=== PATIENT | female | born 1995 | race Caucasian/White ===

== ENCOUNTER 2025-04-26 20:51 | Emergency (ER) | payer MEDICARE, BC, SELFPAY ==
[2025-04-26 20:53] VITALS: BMI 28.5
[2025-04-26 21:58] VITALS: BP 148/89; PULSE 112; RESP 18; TEMP 39.4; O2SAT 99
--- NOTE | 2025-04-26 22:06 | XR_ITS ---
Examination: PA chest single view TECHNIQUE: Upright PA chest single view Date and time: April 26, 2025, 2216 hours INDICATIONS: Chest pain and shortness of breath coughing beginning 2 days ago. FINDINGS: Normal heart size. Lungs are clear. The osseous structures are intact IMPRESSION: No active disease
[2025-04-26] MEDS: ACETAMINOPHEN 325 MG TABLET 650 MG PO (22:50)
[2025-04-26 22:57] LABS: Basophils # (Auto) 0.0 Thou/mm3 (0.0-0.2); Basophils % (Auto) 0 % (0-2.5); Eosinophils # (Auto) 0.0 Thou/mm3 (0.0-0.5); Eosinophils % (Auto) 0 % (0-10); Hematocrit 37.9 % (36.0-46.0); Hemoglobin 12.6 g/dL (12.0-16.0); Immature Granulocytes Auto 0.05 Thou/mm3 (0.00-0.00); Lymphocytes # (Auto) 0.9 Thou/mm3 (1.0-4.8); Lymphocytes % (Auto) 10 % (10-50); Mean Corpuscular HGB Conc 33.2 g/dl (31.0-37.0); Mean Corpuscular Hemoglobin 28.0 pg (25.0-35.0); Mean Corpuscular Volume 84 fL (80-100); Monocytes # (Auto) 1.3 Thou/mm3 (0.0-0.8); Monocytes % (Auto) 15 % (0-12); Neutrophils # (Auto) 6.7 Thou/mm3 (1.8-7.7); Neutrophils % (Auto) 74 % (37-80); Nucleated Red Blood Cell # 0.00 Thou/mm3 (0.00-0.00); Nucleated Red Blood Cell % 0 /100 WBC (0); Platelet Count 180 Thou/mm3 (140-440); RDW Standard Deviation 40.7 fL (36.4-46.3); Red Blood Count 4.50 Miln/mm3 (4.00-5.20); White Blood Count 9.1 Thou/mm3 (3.6-11.0)
[2025-04-26 23:01] LABS: HCG,Qualitative Serum Negative
[2025-04-26] MEDS: SODIUM CHLORIDE 0.9% 1000 ML 1,000 ML 999 ML IV (23:02)
[2025-04-26 23:11] LABS: Collection Type, Urine Voided
[2025-04-26 23:17] LABS: Alanine Aminotransferase 19 U/L (10-49); Albumin, Serum 4.6 gm/dL (3.5-5.0); Albumin/Globulin Ratio 1.6 (1.2-2.2); Alkaline Phosphatase 73 U/L (46-116); Anion Gap 12 (7-16); Aspartate Amino Transferase 24 U/L (0-34); BUN/Creatinine Ratio 9 Ratio (12-20); Bilirubin,Total 0.2 mg/dL (0.3-1.2); Blood Urea Nitrogen 7 mg/dL (9-23); Calcium 9.2 mg/dL (8.3-10.6); Calcium (Corrected) 9.2 mg/dL (8.5-10.1); Carbon Dioxide 21.4 mMol/L (20.0-31.0); Chloride 107 mMol/L (98-107); Creatinine (Component) 0.8 mg/dL (0.6-1.3); Estimated Creatinine Clearance 120.8 mL/min (>60); Globulin 2.9 gm/dL (2.3-3.5); Glucose 100 mg/dL (74-106); Osmolality,Calculated 277 (275-295); Potassium 3.3 mMol/L (3.4-5.1); Sodium 140 mMol/L (136-145); Total Protein 7.5 gm/dL (5.7-8.2); eGFR > 60 See Note
[2025-04-26 23:18] LABS: HCG Qualitative,Urine Negative
[2025-04-26 23:20] LABS: Bilirubin,Urine Negative (Negative); Blood,Urine 1+ (Negative); Clarity,Urine Clear (Clear/Hazy); Color,Urine Lt-Yellow (Lt Yel-Yel); Glucose, Urine Negative (Negative); Ketones,Urine Negative (Negative); Leukocyte Esterase,Urine Negative (Negative); Nitrite,Urine Negative (Negative); PH,Urine 6.5 (5.0-7.0); Protein,Urine Negative (Neg - Trace); RBC,Urine 6 /hpf (0-3); Specific Gravity,Urine 1.008 (1.001-1.035); Squamous Epithelial Cell,Urine < 1 /hpf (0-5); Urobilinogen,Urine Negative mg/dL (0.0-1.0); WBC,Urine 2 /hpf (0-5)
--- NOTE | 2025-04-26 23:32 | EDNOTE_ITS ---
ED Fever RME/HPI General Chief Complaint: Fever Stated Complaint: FEVER BODYACHES AND VOMITING Time Seen by Provider: 04/26/25 21:23 Arrival date/time: 04/26/25 20:51 This is a case of 25-year-old female with history of asthma came in in the emergency room due to fever cough nasal congestion for 2 days with generalized body ache and 1 episode of vomiting and nausea persistence of the symptoms this patient decided to start consult here in the emergency room no chest pain no palpitation noted Limitations: no limitations Related Data Previous Rx's ?Medication ?Instructions ?Recorded ibuprofen 600 mg tablet 600 mg PO Q8H PRN pain #30 t abs 04/28/20 amoxicillin 875 mg-potassium 1 tab PO BID #20 tabs 12/07 clavulanate 125 mg tablet albuterol sulfate 2.5 mg/0.5 mL 2.5 mg (0.5 mL) inhala tion Q6H PRN 04/26/25 solution for nebulization shortness of breath or wheez ing #30 ea albuterol sulfate 90 mcg/actuation 2 puff inhalation Q 6H PRN 04/26/25 aerosol inhaler (Ventolin HFA) shortness of breath or wheezing #8.5 grams nebulizer and compressor #1 ea 04/26/25 nirmatrelvir 300 mg (150 mg 3 tab PO BID #30 tabs 04/13 02/05 x2)-ritonavir 100 mg tablet,dose pack (Paxlovid) ondansetron 4 mg disintegrating 4 mg PO Q8H PRN nausea and 04/26/25 tablet vomiting #20 tabs promethazine-DM 6.25 mg-15 mg/5 mL 5 ml PO Q6H PRN cou gh #473 mL 04/26/25 oral syrup Allergies Allergy/AdvReac Type Severity Reaction Status Date / Time No Known Allergies Allergy Verified 04/26/25 20:57 Review of Systems Review of Systems Systems Reviewed: All systems reviewed, normal except as documented Constitutional Constitutional: Reports system reviewed and no additional complaints, except as documented, Reports as per HPI, Reports body ache(s), Reports chills and Reports fever(s) ENT Ears, Nose, Mouth, and Throat: Reports system reviewed and no additional complaints, except as documented, Reports nasal congestion and Reports nasal discharge Cardiovascular Cardiovascular: Reports system reviewed and no additional complaints, except as documented, Reports as per HPI, Denies chest pain and Reports dyspnea Respiratory Respiratory: Reports system reviewed and no additional complaints, except as documented, Reports as per HPI, Reports chest congestion, Reports cough and Reports dyspnea Integumentary/Breasts Skin/Breast: Reports system reviewed and no additional complaints, except as documented and Reports as per HPI Neurologic Neurologic: Reports system reviewed and no additional complaints, except as documented and Reports as per HPI Past Medical History Past Medical History NEUROLOGIC: Negative Seizures CARDIAC: Negative Congestive Heart Failure RESPIRATORY: Negative Chronic Obstructive Pulmonary Disease (COPD) GENITOURINARY: Negative Renal Disease ENDOCRINE: Negative Diabetes Mellitus Type 1 or Diabetes Mellitus Type 2 OTHER HISTORY: Negative Blood Transfusions, Blood Transfusion Reaction or Anesthesia Reactions Social History SMOKING STATUS: Never smoker SUBSTANCE USE: does not use Physical Exam General Limitations: no limitations General appearance: alert, in no apparent distress and other (Patient is awake alert oriented not in distress nontoxic looking well-hydrated well-nourished) Head Head exam: atraumatic Eye Eye exam: Present normal appearance, PERRL and EOMI ENT ENT exam: Present normal exam, normal oropharynx, mucous membranes moist and other (HEENT normal) Neck Neck exam: Present normal inspection, full ROM, trachea midline and other (Negative for meningeal sign); Absent tenderness, meningismus, lymphadenopathy or thyromegaly Chest Chest inspection: Present normal inspection and symmetric chest wall rise; Absent tenderness Respiratory Respiratory exam: Present normal lung sounds bilaterally and wheezes (Wheezing both lower lung field); Absent respiratory distress, stridor, accessory muscle use or prolonged expiratory phase Cardiovascular Cardiovascular exam: Present regular rate, normal rhythm and normal heart sounds; Absent bradycardia, tachycardia, irregular rhythm, systolic murmur or diastolic murmur Abdominal Exam Abdominal exam: Present soft and normal bowel sounds; Absent distention, tenderness, guarding, rebound, rigidity, diminished bowel sounds, hyperactive bowel sounds or hypoactive bowel sounds Extremities Exam Extremities exam: Present normal inspection and full ROM Back Exam Back exam: Present normal inspection and full ROM Neurological Exam Neurological exam: Present alert, oriented X3, CN II-XII intact, normal gait and reflexes normal; Absent motor sensory deficit Psychiatric Psychiatric exam: Present normal affect and normal mood Skin Skin exam: Present warm, dry, intact and normal color ED Exam General Limitations: Present no limitations General appearance: Present alert, in no apparent distress and other (Patient is awake alert oriented not in distress nontoxic looking well-hydrated well- nourished) Head Head exam: Present atraumatic Eye Eye exam: Present normal appearance, PERRL and EOMI ENT ENT exam: Present normal exam, normal oropharynx, mucous membranes moist and other (HEENT normal) Neck Neck exam: Present normal inspection, full ROM, trachea midline and other (Negative for meningeal sign); Absent tenderness, meningismus, lymphadenopathy or thyromegaly Chest Chest inspection: Present normal inspection and symmetric chest wall rise; Absent tenderness Respiratory Respiratory exam: Present normal lung sounds bilaterally and wheezes (Wheezing both lower lung field); Absent respiratory distress, stridor, accessory muscle use or prolonged expiratory phase Cardiovascular Cardiovascular exam: Present regular rate, normal rhythm and normal heart sounds; Absent bradycardia, tachycardia, irregular rhythm, systolic murmur or diastolic murmur Abdominal Exam Abdominal exam: Present soft and normal bowel sounds; Absent distention, tenderness, guarding, rebound, rigidity, diminished bowel sounds, hyperactive bowel sounds or hypoactive bowel sounds Extremities Exam Extremities exam: Present normal inspection and full ROM Back Exam Back exam: Present normal inspection and full ROM Neurological Exam Neurological exam: Present alert, oriented X3, CN II-XII intact, normal gait and reflexes normal; Absent motor sensory deficit Psychiatric Psychiatric exam: Present normal affect and normal mood Skin Skin exam: Present warm, dry, intact and normal color Course Quality Measures none Orders Category Date Time Status Bedside COVID-19 Antigen Test NOW Care 04/26/25 21:12 Active Bedside Influenza A&B Antigen Test NOW Care 04/26/25 21:12 Active XR chest 1V portable Stat Exams 04/26/25 22:06 Completed CBC Stat Lab 04/26/25 22:30 Completed CMP [Comprehensive Metabolic Panel] Stat Lab 04/26/25 22:30 Completed HCG Qualitative,Urine Stat Lab 04/26/25 22:53 Completed HCG,Qualitative Serum Stat Lab 04/26/25 22:30 Completed Urinalysis Stat Lab 04/26/25 22:53 Completed Acetaminophen Tab [Tylenol Tab] Med 04/26/25 22:06 Discontinued 650 mg PO X1 ONE Albuterol/Ipratr Rt Gayle [Duoneb Rt Gayle] Med 04/26/25 23:30 Discontinued 3 ml INH X1 ONE Dexamethasone Inj [Decadron Inj] 10 mg Med 04/26/25 23:30 Discontinued Sodium Chloride 0.9% [Ns] 100 ml IV X1 Ibuprofen Tab [Motrin Tab] Med 04/26/25 22:06 Pending 800 mg PO X1 ONE Potassium Chloride [K-Dur] Med 04/26/25 23:32 Discontinued 20 meq PO X1 ONE Sodium Chloride 0.9% 1000 ml [Ns] 1,000 ml Med 04/26/25 22:06 Discontinued IV 999 mls/hr Vital Signs Vital signs: Vital Signs Temperature 103 F H 04/26/25 21:58 Pulse Rate 112 H 04/26/25 21:58 Respiratory Rate 18 04/26/25 21:58 Blood Pressure 148/89 H 04/26/25 21:58 Pulse Oximetry (%) 99 04/26/25 21:58 Oxygen Delivery Method Room Air 04/26/25 21:58 Patient is febrile tachycardic not tachypneic not hypoxic oxygen saturation is 99% room air patient was given Motrin and Tylenol temperature was rechecked and noted to be normal 99 heart rate went down to 100 Fever MDM Narrative MDM Narrative:: This is a case of 25-year-old female with history of asthma came in in the emergency room due to fever cough nasal congestion for 2 days with generalized body ache and 1 episode of vomiting and nausea persistence of the symptoms this patient decided to start consult here in the emergency room no chest pain no palpitation noted physical examination patient is awake alert oriented not in distress nontoxic looking HEENT is normal excellent skin turgor negative for meningeal sign lung sounds wheezing both lower lung field no crackles no rales no retraction no stridor the rest of the physical examination and neurological exam is normal and unremarkable patient was given breathing treatment and dexamethasone which patient condition markedly improved no wheezing noted patient verbalized relief of the symptoms patient blood test showed no leukocytosis no anemia kidney and liver function is normal patient is hypokalemic with potassium of 3.3 thus K-Dur was given and follow-up with PCP to repeat the level of the potassium as an outpatient patient chest x-ray normal no pneumonia patient is COVID-positive negative for flu at this point patient will follow-up with PCP in 2 days for reevaluation and for any worsening symptoms or any emergent concerns she will return in the emergency room immediately or call [phone] she will continue to monitor his oxygen level and temperature and give Tylenol or Motrin as needed for fever and return to the emergency room if the oxygen saturation is less than 92% hydrate daily she will also take vitamin C and zinc daily patient will follow-up with PCP in 2 days for reevaluation Patient was discharged with comfortable condition walking with stable gait. Patient verbalized no further complains explained diagnosis and answered patient question. Patient is comfortable with the proposed management plan including the need to follow up with his/her primary care physician and any specialist if applicable Discussed patient for any urgent condition or worsening sx, He/She needed to go to emergency room immediately or call [phone]. Patient acknowledge the responsibility to follow up as instructed and to monitor her/his symptoms. For any persistence of the symptoms for more than 3-5 days return precaution advised. Discussed the result of the test and was given printed discharge instruction Patient data External records reviewed:: [facility] previous records Clinical information provided by:: patient Social determinants that could affect healthcare access:: none Patient has the following chronic illnesses:: None How is presenting disease/condition affected by chronic disease/condition?: no chronic disease Evaluation data The following diagnostics were reviewed and interpreted by me:: lab results and radiology exam(s) Lab and/or radiology exams considered but not ordered:: Reviewed Interpretation Summary: Reviewed Medications / Prescriptions Medications or Prescriptions considered but not ordered:: Given Medication administrations:: Medication Administration History Ibuprofen (Ibuprofen Tab 400 Mg Tablet) 800 mg PO X1 ONE Stop: 04/26/25 22:07 Discontinued Medications Acetaminophen (Acetaminophen 325 Mg Tablet) 650 mg PO X1 ONE Stop: 04/26/25 22:07 Last Admin: 04/26/25 22:50 Dose: 650 mg Documented By: AKUA Albuterol/Ipratropium (Albuterol/Ipratropium (Duoneb) Rt Gayle 3 Ml Nebu) 3 ml INH X1 ONE Stop: 04/26/25 23:31 Last Admin: 04/26/25 23:51 Dose: 3 ml Documented By: EMELIA Sodium Chloride (Ns) 1,000 mls @ 999 mls/hr IV .Q1H1M ONE Stop: 04/26/25 23:06 Last Admin: 04/26/25 23:02 Dose: 999 mls/hr Documented By: AKUA Dexamethasone Sodium Phosphate (10 mg/ Sodium Chloride) 101 mls @ 101 mls/hr IV X1 ONE Stop: 04/26/25 23:31 Potassium Chloride (Potassium Chloride 20 Meq Tabcr) 20 meq PO X1 ONE Stop: 04/26/25 23:33 Given Consultations Consultation(s) initiated? (list below): No Diagnosis Fever Differential Diagnosis: fever of unknown origin, gastroenteritis, community acquired pneumonia, pyelonephritis, viral infection, sepsis and influenza Most likely diagnosis given after review of the tests above:: COVID-19 Admission Indicated Admission indicated?: not indicated Explain why admission is indicated or not indicated:: Not indicated Admission Request Was there a request for admission?: No Admission Attestation Admission request attestation: Not indicated Disposition Plan Disposition Plan: Discharge Discharge Attestation Discharge Attestation: The patient and all family members were given an opportunity to ask questions and understood the discharge instructions. Discharge instructions specifically effects, indications for sooner follow up or return to the emergency department, and the expected course of current diagnosis. Patient condition: Stable Discharge Plan Plan Patient Disposition: HOME (Self Care) Patient condition on transfer: Stable Prescriptions/Referrals Prescriptions/Med Rec: New Paxlovid 300 mg (150 mg x 2)-100 mg tablets,dose pack 3 tab PO BID Qty: 30 0RF Rx Instructions: 3 tabs orally; albuterol sulfate [Ventolin HFA] 90 mcg/actuation HFA aerosol inhaler 2 puff inhalation Q6H PRN (Reason: shortness of breath or wheezing) Qty: 8.5 0RF promethazine-DM 6.25-15 mg/5 mL syrup 5 ml PO Q6H PRN (Reason: cough) Qty: 473 0RF (DME) nebulizer and compressor Device See Rx Instructions .Route Qty: 1 0RF Rx Instructions: As directed albuterol sulfate 2.5 mg/0.5 mL solution for nebulization 2.5 mg inhalation Q6H PRN (Reason: shortness of breath or wheezing) Qty: 30 0RF ondansetron 4 mg tablet,disintegrating 4 mg PO Q8H PRN (Reason: nausea and vomiting) Qty: 20 0RF No Action ibuprofen 600 mg tablet 600 mg PO Q8H PRN (Reason: pain) Qty: 30 0RF amoxicillin-pot clavulanate 875-125 mg tablet 1 tab PO BID Qty: 20 0RF Problem List Clinical Impression: Fever, COVID-19, Mild asthma exacerbation, Hypokalemia Patient/Caregiver Discharge Instructions Education Materials: COVID-19 Prevention, COVID-19 Home Care, Asthma Medicine, ED FUO Adult, ED Hypokalemia, Asthma Additional Instructions: Follow-up with your primary care physician in 2 days for reevaluation recurrence persistent worsening symptoms such as shortness of breath retracted chest pain fever chills unable to eat nausea vomiting abdominal pain wheezing call 911 or go to the nearest emergency room take your medication as directed monitor your temperature every 4 hours and give Tylenol or Motrin as needed for fever check your oxygen saturation every 12 hours and return to the emergency room immediately if it is less than 92% take vitamin C and zinc daily keep hydrated self quarantine per CDC protocol follow-up with your [facility] care physician to repeat the level of potassium as an outpatient eat banana every day Print Language: Chinese Stand Alone Forms: Lizzy Award Info., Patient Portal Info Letter PA/HAND SHOE CUTTER Supervising Physician PA/HAND SHOE CUTTER Supervising Physician: dr khan
[2025-04-26 23:34] VITALS: BP 123/79; PULSE 98; RESP 18; TEMP 37.8; O2SAT 98
[2025-04-26] MEDS: ALBUTEROL/IPRATROPIUM (Duoneb) RT SOL 3 ML NEBU INH (23:51)
[2025-04-26 23:53] VITALS: PULSE 101; RESP 18; O2SAT 99
[2025-04-27 00:37] VITALS: TEMP 37.7
[2025-04-27] MEDS: IBUPROFEN TAB 400 MG TABLET 800 MG PO (00:43)
[2025-04-27] MEDS: DEXAMETHASONE SOD PHOS INJ 10 MG/ML VIAL PO (00:43)
[2025-04-27 01:00] VITALS: BP 136/78; PULSE 88; RESP 18; TEMP 37.7; O2SAT 96
== END 2025-04-27 01:01 | disposition home or self-care (01) ==
LOC: SERX 04-27
PROVIDERS: Nurse Practitioner Family; Emergency Provider Emergency Medicine
DX: U07.1 COVID-19 (principal); J45.901 Unspecified asthma with (acute) exacerbation; E87.6 Hypokalemia
CPT/HCPCS: 36415; 71045; 80053; 81001; 81025; 84703; 85025; 87400; 87811; 94640; 99284; A9270; J1100; J7030

== ENCOUNTER 2025-06-10 15:34 | Outpatient (AMB) | payer MEDICARE, BC, SELFPAY ==
--- NOTE | 2025-06-10 15:47 | AMB.OBINITIA ---
Vital Signs 06/10/25 15:55 Height 1.73 m Height Method Stated Weight 85.729 kg Weight Measurement Method Standing Scale BMI 28.7 BP 127/81 Blood Pressure Source Automatic Cuff Blood Pressure Location Left Upper Arm Position Sitting Respiration 16 Pulse 86 Pulse Source Monitor Temp 98.1 F Temp Source Oral Pulse Oximetry (%) 99 Oxygen Delivery Method Room Air Allergies/Home Meds Allergies & Medications Allergies No Known Allergies Allergy (Verified 06/17/25 15:18) Intake Visit Data Collection New Patient or Established: Established Patient (seen at [facility] within 3 years) Reason for Visit:: INITIAL CARE Seen by Clinical Staff ONLY (RN/MA): No Environmental Science Instructor Required: No Do You Feel Safe at Home: Yes Authorities Contacted: N/A PCP or OBGYN visit in last 3 months: Yes Hx Now: Yes Are you currently on any form of Control: No Last menstrual period: 04/10/25 Pain Present Currently: No Pain Scale Used: Dietz-Cagle/Numerical Pain scale:: 0 Smoking Status Smoking Status: Never smoker Questionnaires Covid-19 Vaccine Questionnaire Has patient been vacinated for Covid-19 Have you been vacinated for Covid-19: Yes PHQ-9 PHQ-2 Over the last 2 weeks, how often have you been bothered by any of the following problems? 1. Little interest or pleasure in doing things: not at all 2. Feeling down, depressed, or hopeless: not at all Total score: 0 PHQ-9 3. Trouble falling or staying asleep, or sleeping too much: Not at all 4. Feeling tired or having little energy: Not at all 5. Poor appetite or overeating: Not at all 6. Feeling bad about yourself - or that you are a failure or have let yourself or your family down: Not at all 7. Trouble concentrating on things, such as reading the newspaper or watching television: Not at all 8. Moving or speaking so slowly that other people could have noticed? - Or the opposite - being so fidgety or restless that you have been moving around a lot more than usual: not at all 9. Thoughts that you would be better off or of hurting yourself in some way: Not at all Total score: 0 Source: Developed by Drs. Ilan Elliott, Savanna B.W. Jose Rodriguez and colleagues, with an educational shaun from [employer]. Depression screen completed yes Social History Living Situation History Marital Status: Lives With: Family Housing: House Tobacco History Smoking Status: Never smoker Second Hand Smoke Exposure: No Alcohol History Alcohol Intake: Former Domestic Abuse History Do You Feel Safe at Home: Yes History of Present Illness HPI Narrative Patient is a [id number] presenting for evaluation of a possible early . Her last menstrual period was from April 04 to April 10, with a very light period in April and no period in May. The patient has a significant obstetrical history. Her first in 2019 resulted in a miscarriage at 17 weeks. During that , she experienced vaginal pressure, spotting, and cramping throughout. She made multiple ER visits, where a uterine issue affecting her kidneys was noted but not treated. Her second was initially undetected. She experienced severe cramping two weeks after her period, and a test at work was positive. Initial evaluation at [place] suggested a miscarriage, but rising B-HCG levels and a subsequent ultrasound confirmed the . She was then seen by a high-risk doctor and received a cerclage. This was successful, resulting in delivery at 37 weeks via due to concerns about hemorrhage related to idiopathic intracranial hypertension. The patient denies any current urinary tract infection symptoms. 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 She reports that oral progesterone previously caused migraines. 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 Past Medical History: No Hx Renal Disease, No Hx Diabetes Mellitus Type 1 and No Hx Diabetes Mellitus Type 2 OB Initial Visit Menstrual History Menstrual reliability: definite Flow: normal Menstrual regularity: regular Monthly: Yes Age at menarche: 10 On control pills at conception: No Associated symptoms (LMP): Reports fatigue and breast tenderness OB History : 4 Para: 2 # of Living Children: 1 Delivery History 1st : Child's name: MANUELA date: 07/11/23 sex: female Gestational age at delivery (weeks): 37 Delivery type: Delivery complications: NONE History of depression before or after : No Infection History & Risk Evaluation History of STDs: none Genetic Screening & History Genetic Screening/Teratology Counseling - Includes patient, baby's father, or anyone in either family with: 1. Patient's age 35 years or older as of estimated date of delivery: No 2. Thalassemia (Brazilian, Swedish, Mediterranean, or Background); MCV less than 80: No 3. Neural Tube Defect (Meningomyelocele, Spina Bifida, or Anencephaly): No 4. Congenital Heart Defect: No 5. Down Syndrome: No 6. Gabriele-Sachs (Ashkenazi Zoroastrian, Cajun, Arabic Brazilian): No 7. Marcell Disease (Ashkenazi Zoroastrian): No 8. Familial Dysautonomia (Ashkenazi Zoroastrian): No 9. Sickle Cell Disease or Trait (): No 10. Hemophilia or other blood disorders: No 11. Muscular Dystrophy: No 12. Cystic Fibrosis: No 13. Saima's Chorea: No 14. Mental Retardation/Autism: No 15. Other inherited genetic or chromosomal disorder: No 16. Maternal Metabolic Disorder (EG,TYPE 1 Diabetes, PKU): No 17. Patient or baby's father had a child with defects not listed above: No 18. Recurrent loss or a stillbirth: No 19. Medications (including supplements, vitamins, herbs or otc drugs)/illicit/recreational drugs/alcohol since last menstrual period: No 20. Any other: No Infection History 1. Live with someone with TB or exposed to TB: No 2. Rash or viral illness since last menstrual period: No 3. Hepatitis B,C: No Other (see comments) Source: [employer] Review of Systems Constitutional Constitutional: Reports fatigue Endocrine Endocrine: Reports fatigue Exam General General Appearance: alert, in no apparent distress and healthy appearing Head Head exam: atraumatic Neck Neck exam: Present normal inspection and trachea midline Chest Chest inspection: Present normal inspection and symmetric chest wall rise External exam: Present normal external exam; Absent tenderness Neuro Neurological exam: Present oriented X3 Psych Psychiatric exam: Present normal affect and normal mood Office Procedures OB Clinic LOC & Office Proc's Nursing/Assessment Patient Status: Established Patient OB Clinic Nursing Assessment: Medication Reconciliation, Update PMH in EMR and Vital Signs OB Clinic Coordination of Care: Complex Care and Chronic Disease 1-5, Consent,records obtained, informed consent, Education Simp Pt/Fam, Lab and Imaging orders, Results/Orders obtained and Staff clarify orders Special Needs: Heart tones Established Patient Charge Established Patient Point Assignment: 135 Established Patient Point Charge: EP Level 4 (120-155) Assessment & Plan Diagnosis / Problem List (1) of unknown anatomic location: Status: Acute Plan Early Assessment: Patient reports last menstrual period April 04, with a light period in April and no period in May. Ultrasound shows a gestational sac forming in the uterus, but no pole or heartbeat visible yet, consistent with very early . Given the patient's history of delivery and previous successful with cerclage, she qualifies for a history-indicated cerclage. Plan: - Order serum ?-hCG tests: first test tomorrow, second test on Saturday - Follow-up appointment scheduled for Saturday to review results - If ?-hCG doubles in 72 hours, is considered normal - Expect to visualize fetus on ultrasound when ?-hCG reaches [id number] - Recommend rest as much as possible until cerclage placement at 12-14 weeks - Plan for history-indicated cerclage placement at 12-14 weeks gestation - After cerclage placement: one week recovery period, return to work until approximately 28 weeks gestation - Consider vaginal progesterone supplementation once heartbeat is confirmed History of Delivery Assessment: Patient reports first in 2019 resulted in delivery at 17 weeks gestation. She experienced vaginal pressure, spotting, and cramping throughout, with multiple ER visits. A uterine issue affecting her kidneys was noted but not treated. Second was initially unrecognized, with a positive test following severe cramping. High-risk management included cerclage placement, resulting in successful delivery at 37 weeks via due to concerns about intracranial hypertension and potential hemorrhage. Plan: - Closely monitor current for signs of labor - Educate patient on signs and symptoms of labor - Instruct patient to report any vaginal pressure, spotting, or cramping immediately
[2025-06-10 15:55] VITALS: BP 127/81; PULSE 86; RESP 16; TEMP 36.7; O2SAT 99; BMI 28.7
== END 2025-06-10 16:40 | disposition home or self-care (01) ==
PROVIDERS: Supervising Provider Obstetrics & Gynecology; Visit Provider Obstetrics & Gynecology
DX: O09.899 Supervision of other high risk pregnancies, unspecified trimester (principal); O36.80X0 Pregnancy with inconclusive fetal viability, not applicable or unspecified; O09.219 Supervision of pregnancy with history of pre-term labor, unspecified trimester; O09.299 Supervision of pregnancy with other poor reproductive or obstetric history, unspecified trimester; O34.219 Maternal care for unspecified type scar from previous cesarean delivery; Z3A.00 Weeks of gestation of pregnancy not specified
CPT/HCPCS: 99214; G0463

== ENCOUNTER → 2025-06-11 | Outpatient (CLI) | payer MEDICARE, BC, SELFPAY ==
[2025-06-11 09:23] LABS: Beta HCG,Quantitative 2207 mIU/mL (<5.0)
== END | disposition home or self-care (01) ==
LOC: COPL 07:20
PROVIDERS: PCP Physician Assistant; Referring Provider Obstetrics & Gynecology; Visit Provider Obstetrics & Gynecology
DX: O36.80X0 Pregnancy with inconclusive fetal viability, not applicable or unspecified (principal); Z3A.00 Weeks of gestation of pregnancy not specified
CPT/HCPCS: 36415; 84702

== ENCOUNTER → 2025-06-15 | Outpatient (CLI) | payer OTHER, SELFPAY ==
[2025-06-15 17:18] LABS: Beta HCG,Quantitative 10370 mIU/mL (<5.0)
== END | disposition home or self-care (01) ==
PROVIDERS: PCP Obstetrics & Gynecology; Referring Provider Obstetrics & Gynecology; Visit Provider Obstetrics & Gynecology
DX: O36.80X0 Pregnancy with inconclusive fetal viability, not applicable or unspecified (principal); Z3A.00 Weeks of gestation of pregnancy not specified
CPT/HCPCS: 36415; 84702

== ENCOUNTER 2025-06-17 15:03 | Outpatient (AMB) | payer MEDICARE, BC, SELFPAY ==
--- NOTE | 2025-06-17 15:16 | AMB.OBINITIA ---
Vital Signs 06/17/25 15:17 Height 1.73 m Height Method Stated Weight 86.636 kg Weight Measurement Method Standing Scale BMI 29.0 BP 114/77 Blood Pressure Source Automatic Cuff Blood Pressure Location Right Upper Arm Position Sitting Respiration 17 Pulse 75 Pulse Source Monitor Temp 98.4 F Temp Source Temporal Artery Scan Pulse Oximetry (%) 99 Oxygen Delivery Method Room Air Allergies/Home Meds Allergies & Medications Allergies No Known Allergies Allergy (Verified 06/17/25 15:18) Intake Visit Data Collection New Patient or Established: Established Patient (seen at [facility] within 3 years) Reason for Visit:: OBI Seen by Clinical Staff ONLY (RN/MA): No Double Cutter Required: No Do You Feel Safe at Home: Yes Authorities Contacted: N/A PCP or OBGYN visit in last 3 months: Yes Date of Last PCP or OBGYN visit: 06/10/25 Hx Now: Yes Are you currently on any form of Control: No Pain Present Currently: No Pain Scale Used: Dietz-Cagle/Numerical Pain scale:: 0 Smoking Status Smoking Status: Never smoker Questionnaires Covid-19 Vaccine Questionnaire Has patient been vacinated for Covid-19 Have you been vacinated for Covid-19: No PHQ-9 PHQ-2 Over the last 2 weeks, how often have you been bothered by any of the following problems? 1. Little interest or pleasure in doing things: not at all 2. Feeling down, depressed, or hopeless: not at all Total score: 0 PHQ-9 3. Trouble falling or staying asleep, or sleeping too much: Not at all 4. Feeling tired or having little energy: Not at all 5. Poor appetite or overeating: Not at all 6. Feeling bad about yourself - or that you are a failure or have let yourself or your family down: Not at all 7. Trouble concentrating on things, such as reading the newspaper or watching television: Not at all 8. Moving or speaking so slowly that other people could have noticed? - Or the opposite - being so fidgety or restless that you have been moving around a lot more than usual: not at all 9. Thoughts that you would be better off or of hurting yourself in some way: Not at all Total score: 0 If you checked off any problems, how difficult have these problems made it for you to do your work, take care of things at home, or get along with other people?: not difficult at all Source: Developed by Drs. Ilan Elliott, Savanna Rodriguez, Jose Carlos and colleagues, with an educational shaun from [employer]. 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
[2025-06-17 15:17] VITALS: BP 114/77; PULSE 75; RESP 17; TEMP 36.9; O2SAT 99; BMI 29.0
--- NOTE | 2025-06-17 15:31 | AMB.OBVISIT ---
Vital Signs 06/17/25 15:17 06/17/25 15:33 Height 1.73 m Height Method Stated Weight 86.636 kg Weight Measurement Method Standing Scale BMI 29.0 BP 114/77 114/77 Blood Pressure Source Automatic Cuff Blood Pressure Location Right Upper Arm Position Sitting Respiration 17 17 Pulse 75 75 Pulse Source Monitor Temp 98.4 F 98.4 F Temp Source Temporal Artery Scan Pulse Oximetry (%) 99 99 Oxygen Delivery Method Room Air Allergies/Home Meds Allergies & Medications Allergies No Known Allergies Allergy (Verified 06/17/25 15:18) Intake Visit Data Collection New Patient or Established: Established Patient (seen at [facility] within 3 years) Reason for Visit:: OBC Seen by Clinical Staff ONLY (RN/MA): No Blueprint 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 1. Little interest or pleasure in doing things: not at all 2. Feeling down, depressed, or hopeless: not at all Total score: 0 PHQ-9 3. Trouble falling or staying asleep, or sleeping too much: Not at all 4. Feeling tired or having little energy: Not at all 5. Poor appetite or overeating: Not at all 6. Feeling bad about yourself - or that you are a failure or have let yourself or your family down: Not at all 7. Trouble concentrating on things, such as reading the newspaper or watching television: Not at all 8. Moving or speaking so slowly that other people could have noticed? - Or the opposite - being so fidgety or restless that you have been moving around a lot more than usual: not at all 9. Thoughts that you would be better off or of hurting yourself in some way: Not at all Total score: 0 If you checked off any problems, how difficult have these problems made it for you to do your work, take care of things at home, or get along with other people?: not difficult at all Source: Developed by Drs. Ilan Elliott, Savanna Rodriguez, Jose Carlos and colleagues, with an educational shaun from [employer]. 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 She also mentions cramping, though the extent and severity are not specified. The patient has been advised that during normal implantation, some bleeding, spotting, and cramping can be normal. However, she has been instructed to go on bedrest if the symptoms persist. She has an early confirmed by serum hCG levels. The patient reports a little bit of spotting with this current . ROS: Genitourinary: Positive for spotting, cramping. - Serum beta-hCG (06-11-2025): 2207 - Serum beta-hCG (06-15-2025): 14000 - Hemoglobin A1c (SatJun 17 2025): 4.6% - Bedside ultrasound: No pole visualized - Radiology ultrasound: Trans-abdominal and trans-vaginal ultrasound performed (results pending) Exam General General Appearance: alert, in no apparent distress and healthy appearing Head Head exam: atraumatic Neck Neck exam: Present normal inspection and trachea midline Chest Chest inspection: Present normal inspection and symmetric chest wall rise External exam: Present normal external exam; Absent tenderness Neuro Neurological exam: Present oriented X3 Psych Psychiatric exam: Present normal affect and normal mood Office Procedures OB Clinic LOC & Office Proc's Nursing/Assessment Patient Status: Established Patient OB Clinic Nursing Assessment: Medication Reconciliation, Update PMH in EMR and Vital Signs OB Clinic Coordination of Care: Complex Care and Chronic Disease 1-5, Consent,records obtained, informed consent, Education Simp Pt/Fam, Results/Orders obtained and Staff clarify orders Special Needs: Heart tones Established Patient Charge Established Patient Point Assignment: 120 Established Patient Point Charge: EP Level 4 (120-155) Assessment & Plan Diagnosis / Problem List (1) of unknown anatomic location: Status: Acute Plan Early : - Patient in early with appropriate beta-hCG rise from 2207 on 06/11 to 13492 on 06/15. - Reports spotting, which can be normal during implantation. - Bedside ultrasound did not show pole. - A1c 4.6, within normal range. Plan: - Bedrest advised if spotting persists. - Trans-abdominal and trans-vaginal ultrasound ordered and performed in radiology for further evaluation. - Follow-up based on ultrasound results.
[2025-06-17 15:33] VITALS: BP 114/77; PULSE 75; RESP 17; TEMP 36.9; O2SAT 99
== END 2025-06-17 15:56 | disposition home or self-care (01) ==
LOC: HODSOBC 15:03
PROVIDERS: Supervising Provider Obstetrics & Gynecology; Visit Provider Obstetrics & Gynecology
DX: O36.80X0 Pregnancy with inconclusive fetal viability, not applicable or unspecified (principal); Z3A.00 Weeks of gestation of pregnancy not specified; O26.859 Spotting complicating pregnancy, unspecified trimester
CPT/HCPCS: 99214; G0463

== ENCOUNTER → 2025-06-17 | Outpatient (CLI) | payer OTHER, BC, SELFPAY ==
--- NOTE | 2025-06-17 16:01 | XR_ITS ---
Examination: OB Transvaginal ultrasound of the pelvis, complete Technique: Transvaginal sonographic images pelvis performed using huffman scale imaging Exam date and time: June 17, 2025 1616 hrs. Indications: Vaginal bleeding episode June 13, 2025. Findings: Uterus 7.9 cm Irregular intrauterine gestational sac 1.2 cm corresponds to 6 week 0 day gestational age No pole. No cardiac activity. Right ovary 3.3 cm arterial flow. Left ovary 4.0 cm, 21 x 18 mm cyst Impression: Empty intrauterine gestational sac corresponding to 6 week 0 day gestational age, recommend short-term follow-up to exclude embryonic demise
--- NOTE | 2025-06-17 16:01 | XR_ITS ---
Examination: Complete OB ultrasound, less than 14 weeks, transabdominal Date and time of exam: June 17, 2025, 1609 hrs. Indications: Vaginal bleeding June 13, 2025, size dates discrepancy Technique: Obstetrical ultrasound images less than 14 weeks performed via transabdominal imaging Findings: Uterus 8.5 cm intrauterine gestational sac 1.4 cm correspondences 6 weeks 2 days gestational age. No pole, no cardiac activity. Right ovary 4.1 cm arterial flow. Left ovary 3.8 cm arterial flow 22 mm ovarian cyst Impression: Intrauterine gestational sac corresponding to 6 weeks 2 days gestational age. No pole, no cardiac activity Recommend short-term follow-up pelvic sonography to exclude embryonic demise
== END | disposition home or self-care (01) ==
PROVIDERS: PCP Physician Assistant; Referring Provider Obstetrics & Gynecology; Visit Provider Obstetrics & Gynecology
DX: O36.80X0 Pregnancy with inconclusive fetal viability, not applicable or unspecified (principal); O26.849 Uterine size-date discrepancy, unspecified trimester; Z3A.01 Less than 8 weeks gestation of pregnancy
CPT/HCPCS: 76801; 76817

== ENCOUNTER 2025-06-25 11:32 | Outpatient (AMB) | payer OTHER, BC, SELFPAY ==
[2025-06-25 11:38] VITALS: BP 126/72; PULSE 86; RESP 16; TEMP 36.8; O2SAT 100; BMI 29.8
--- NOTE | 2025-06-25 11:38 | OBCLNT_ITS ---
Vital Signs 06/25/25 11:38 Height 1.73 m Height Method Stated Weight 89.358 kg Weight Measurement Method Standing Scale BMI 29.8 BP 126/72 Blood Pressure Source Automatic Cuff Blood Pressure Location Left Upper Arm Position Sitting Respiration 16 Pulse 86 Pulse Source Monitor Temp 98.2 F Temp Source Oral Pulse Oximetry (%) 100 Oxygen Delivery Method Room Air Allergies/Home Meds Allergies & Medications Allergies No Known Allergies Allergy (Verified 06/25/25 11:39) Medication Reconciliation No Known Home Medications 06/25/25 [History Confirmed 06/25/25] Intake Visit Data Collection New Patient or Established: Established Patient (seen at 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 1. Little interest or pleasure in doing things: not at all 2. Feeling down, depressed, or hopeless: not at all Total score: 0 PHQ-9 3. Trouble falling or staying asleep, or sleeping too much: Not at all 4. Feeling tired or having little energy: Not at all 5. Poor appetite or overeating: Not at all 6. Feeling bad about yourself - or that you are a failure or have let yourself or your family down: Not at all 7. Trouble concentrating on things, such as reading the newspaper or watching television: Not at all 8. Moving or speaking so slowly that other people could have noticed? - Or the opposite - being so fidgety or restless that you have been moving around a lot more than usual: not at all 9. Thoughts that you would be better off or of hurting yourself in some way: Not at all Total score: 0 Source: Developed by Drs. Ilan Elliott, Savanna Rodriguez, Jose Carlos and colleagues, with an educational shaun from [employer]. 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 Past Medical History: No Hx Renal Disease, No Hx Diabetes Mellitus Type 1 and No Hx Diabetes Mellitus Type 2 Office Procedures OB Clinic LOC & Office Proc's Nursing/Assessment Patient Status: Established Patient OB Clinic Nursing Assessment: Medication Reconciliation, Update PMH in EMR and Vital Signs OB Clinic Coordination of Care: Complex Care and Chronic Disease 1-5, Consent,re cords obtained, informed consent, Education Simp Pt/Fam, Lab and Imaging orders, Results/Orders obtained and Staff clarify orders Special Needs: Heart tones Established Patient Charge Established Patient Point Assignment: 135 Established Patient Point Charge: EP Level 4 (120-155) Assessment & Plan Diagnosis / Problem List (1) of unknown anatomic location: Status: Acute
== END 2025-06-25 11:44 | disposition home or self-care (01) ==
LOC: HODSOBC 11:32
PROVIDERS: PCP Physician Assistant; Referring Provider Physician Assistant; Supervising Provider Obstetrics & Gynecology; Visit Provider Obstetrics & Gynecology
DX: O36.80X0 Pregnancy with inconclusive fetal viability, not applicable or unspecified (principal); Z3A.00 Weeks of gestation of pregnancy not specified
CPT/HCPCS: 99214; G0463

== ENCOUNTER → 2025-06-25 | Outpatient (CLI) | payer OTHER, BC, SELFPAY ==
[2025-06-25 13:18] LABS: Beta HCG,Quantitative 100436 mIU/mL (<5.0)
== END | disposition home or self-care (01) ==
LOC: COPL 11:53
PROVIDERS: PCP Physician Assistant; Referring Provider Obstetrics & Gynecology; Visit Provider Obstetrics & Gynecology
DX: O36.80X0 Pregnancy with inconclusive fetal viability, not applicable or unspecified (principal); Z3A.00 Weeks of gestation of pregnancy not specified
CPT/HCPCS: 36415; 84702

== ENCOUNTER → 2025-06-28 | Outpatient (CLI) | payer OTHER, BC, SELFPAY ==
--- NOTE | 2025-06-28 16:00 | XR_ITS ---
Examination: Complete OB ultrasound, less than 14 weeks, transabdominal Date and time of exam: June 28, 2025, 1623 hrs. Indications: Anterior intrauterine gestational sac 6 weeks 0 days on pelvic sonogram 06/17/2025 with a vaginal bleeding episode June 13, 2025 Technique: Obstetrical ultrasound images less than 14 weeks performed via transabdominal imaging Findings: A normal shaped single intrauterine gestation is present in the uterus. CRL 0.7 cm corresponds to 6 weeks 4 days gestational age Cardiac motion 132 BPM Ultrasonographic survey of visible and placental structures unremarkable. Amniotic fluid volume appears appropriate for this estimated gestational age. Right ovary 3.3 cm arterial flow. Left ovary 4.7 cm arterial flow 19 x 17 mm cyst Impression: Viable intrauterine gestation 6 weeks 4 days.
== END | disposition home or self-care (01) ==
LOC: CDIM 15:54
PROVIDERS: PCP Physician Assistant; Referring Provider Obstetrics & Gynecology; Visit Provider Obstetrics & Gynecology
DX: O36.80X0 Pregnancy with inconclusive fetal viability, not applicable or unspecified (principal); Z3A.01 Less than 8 weeks gestation of pregnancy
CPT/HCPCS: 76801

== ENCOUNTER → 2025-06-30 | Outpatient (CLI) | payer OTHER, BC, SELFPAY ==
--- NOTE | 2025-06-30 14:30 | XR_ITS ---
Examination: Ultrasound soft tissue neck TECHNIQUE: Grayscale sonographic images soft tissue neck Date and time: June 30, 2025 1449 hours INDICATIONS: Palpable lump right neck posterior to the Juan Carlos noticed beginning 2 months ago. FINDINGS: Enlarged lymph node at the area concern soft tissue right neck 3.3 x 0.7 x 2.1 cm IMPRESSION: Abnormally enlarged lymph node at the area concern, recommend CT soft tissue neck post intravenous contrast follow-up
== END | disposition home or self-care (01) ==
LOC: CDIM 14:30
PROVIDERS: PCP Physician Assistant; Referring Provider Physician Assistant; Visit Provider Physician Assistant
DX: R22.1 Localized swelling, mass and lump, neck (principal)
CPT/HCPCS: 76536

== ENCOUNTER → 2025-07-06 | Outpatient (CLI) | payer OTHER, BC, SELFPAY ==
--- NOTE | 2025-07-06 14:34 | XR_ITS ---
Examination: OB Transvaginal ultrasound of the pelvis, complete Technique: Transvaginal sonographic images pelvis performed using huffman scale imaging Exam date and time: July 06, 2025 1458 hours INDICATIONS: History incompetent cervix, early by history FINDINGS: Uterus 9.6 cm, CRL 1.6 cm corresponds to 8 weeks 0 day gestational age Cardiac motion 180 bpm Right ovary 2.7 cm arterial flow. Left ovary obscured by bowel gas IMPRESSION: Viable intrauterine gestation 8 weeks 0 days.
== END | disposition home or self-care (01) ==
LOC: CDIM 14:15
PROVIDERS: PCP Physician Assistant; Referring Provider Obstetrics & Gynecology; Visit Provider Obstetrics & Gynecology
DX: O36.80X0 Pregnancy with inconclusive fetal viability, not applicable or unspecified (principal); Z3A.08 8 weeks gestation of pregnancy
CPT/HCPCS: 76817

== ENCOUNTER 2025-07-07 11:35 | Outpatient (AMB) | payer OTHER, BC, SELFPAY ==
[2025-07-07 11:44] VITALS: BP 124/82; PULSE 91; RESP 18; TEMP 36.9; O2SAT 98; BMI 30.2
--- NOTE | 2025-07-07 11:44 | AMB.OBVISIT ---
Vital Signs 07/07/25 11:44 Height 1.73 m Height Method Stated Weight 90.492 kg Weight Measurement Method Standing Scale BMI 30.2 BP 124/82 Blood Pressure Source Automatic Cuff Blood Pressure Location Left Upper Arm Position Sitting Respiration 18 Pulse 91 Pulse Source Monitor Temp 98.4 F Temp Source Oral Pulse Oximetry (%) 98 Oxygen Delivery Method Room Air Allergies/Home Meds Allergies & Medications Allergies No Known Allergies Allergy (Verified 07/07/25 11:46) Medication Reconciliation No Known Home Medications 06/25/25 [History Confirmed 07/07/25] Intake Visit Data Collection New Patient or Established: Established Patient (seen at [facility] within 3 years) Reason for Visit:: CARE Seen by Clinical Staff ONLY (RN/MA): No Culinary Art Teacher Required: No Do You Feel Safe at Home: Yes Authorities Contacted: N/A PCP or OBGYN visit in last 3 months: Yes Hx Now: Yes Are you currently on any form of Control: No Pain Present Currently: No Pain Scale Used: Dietz-Cagle/Numerical Pain scale:: 0 Smoking Status Smoking Status: Never smoker Questionnaires Covid-19 Vaccine Questionnaire Has patient been vacinated for Covid-19 Have you been vacinated for Covid-19: Yes PHQ-9 PHQ-2 Over the last 2 weeks, how often have you been bothered by any of the following problems? 1. Little interest or pleasure in doing things: not at all 2. Feeling down, depressed, or hopeless: not at all Total score: 0 PHQ-9 3. Trouble falling or staying asleep, or sleeping too much: Not at all 4. Feeling tired or having little energy: Not at all 5. Poor appetite or overeating: Not at all 6. Feeling bad about yourself - or that you are a failure or have let yourself or your family down: Not at all 7. Trouble concentrating on things, such as reading the newspaper or watching television: Not at all 8. Moving or speaking so slowly that other people could have noticed? - Or the opposite - being so fidgety or restless that you have been moving around a lot more than usual: not at all 9. Thoughts that you would be better off or of hurting yourself in some way: Not at all Total score: 0 Source: Developed by Savanna SlaterW. Michael, Jose Carlos and colleagues, with an educational shaun from [employer]. 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 She experiences increased symptoms when showering and when sitting down. 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 She took 2 Gas-X yesterday because of the pressure. She has a history of loss at 17 weeks in 2019 with vaginal pressure, spotting, and cramping. Her subsequent was managed with cerclage placement under maternal- medicine specialist care at [place], resulting in successful section delivery at 37 weeks. That was complicated by preeclampsia with ogfevjimy-to-kwtkqoe blood pressures and concern for intracranial hypertension and potential hemorrhage. The patient has been taking Gas-X as needed for pressure, which helps with bowel spasms that can affect the uterus. She is currently 8 weeks and 1 day with an estimated due date of February 15, 2025. She is a female with an obstetric history of G3 T1 L1. 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 ROS: Positive for pelvic pressure, especially when showering, and sensation of cervical opening. Positive for pressure and gas symptoms. Diagnostic Test Results and Labs: - Transvaginal ultrasound (07-06-2025): Gestational age 8 weeks 0 days, heart rate 180 bpm with cardiac motion present, right ovary 2.7 cm with arterial flow, left ovary obscured by bowel gas - Serum hCG (06-11-2025): 2,207 - Serum hCG (06-15-2025): 10,370 - Serum hCG (06-25-2025): 100,436 Care OB Visit Log OB Flowsheet Initial Weight: Not Recorded Date <del>?</del> EGA Weight BP Alb Glu CTX Pres Fundal ht FHR Mov Dilation Station Effacement Hx Notes Visit Note 07/07/25 <del>?</del> 8w 1d 90.492 kg 124/82 absent Gail Apariciotorres, a at 8w1d by LMP, presents with pelvic pressure described as a sensation of the cervix opening, worsened by showering and sitting. 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 Her OB history includes a 17-week loss in 2019 with vaginal pressure and spotting, followed by a successful cerclage-managed complicated by severe preeclampsia. Current transvaginal ultrasound shows viable IUP at 8w0d with FHR 180 bpm. Labs demonstrate appropriate serial hCG rise. Viable IUP at 8w1d. Given history of cervical insufficiency, patient qualifies for history-indicated cerclage. Stat referral to MFM (Dr. Diallo) for TVUS and cervix length assessment; plan cerclage at 12?13 weeks. Strict bedrest advised until evaluation. Vice President Network Development on pelvic rest, hydration, and avoidance of exertion or GI irritants. Continue Gas-X PRN. Given prior severe preeclampsia, recommend early MFM involvement for BP surveillance. Labs ordered, NIPT to be scheduled after 9 weeks. Follow-up in 2 weeks or sooner PRN. DUONG Calculator Estimated Delivery Date Method Current WG Current Estimate 02/15/26 Ultrasound #1 8w 1d Exam General General Appearance: alert, in no apparent distress and healthy appearing Head Head exam: atraumatic Neck Neck exam: Present normal inspection and trachea midline Chest Chest inspection: Present normal inspection and symmetric chest wall rise External exam: Present normal external exam; Absent tenderness Neuro Neurological exam: Present oriented X3 Psych Psychiatric exam: Present normal affect and normal mood Office Procedures OBC Clinic LOC & Office Proc's Nursing/Assessment Patient Status: Established Patient OB Clinic Nursing Assessment: Medication Reconciliation, Update PMH in EMR and Vital Signs OB Clinic Coordination of Care: Complex Care and Chronic Disease 1-5, Consent,records obtained, informed consent, Education Simp Pt/Fam, Lab and Imaging orders, Results/Orders obtained and Staff clarify orders Special Needs: Heart tones Established Patient Charge Established Patient Point Assignment: 135 Established Patient Point Charge: EP Level 4 (120-155) Assessment & Plan Diagnosis / Problem List (1) Maternal care for low transverse scar from previous delivery: Status: Acute (2) History of labor, current : Status: Acute (3) Supervision of high risk , unspecified, first trimester: Status: Acute Plan Intrauterine at 8 weeks and 1 day gestation: - Viable intrauterine measuring 8 weeks and 0 days with cardiac motion of 180 bpm on transvaginal ultrasound. - Estimated due date of February 15, 2026. - appears to be progressing normally at this stage. Plan: - Order panel laboratory tests. - Schedule genetic testing after 9 weeks gestation (patient eligible starting 07-13-2025). - Patient may return any day next week for a follow-up scan. - Schedule follow-up appointment in 2 weeks. History of cervical insufficiency: - History of loss at 17 weeks in 2019 with symptoms of vaginal pressure, spotting, and cramping. - Successful subsequent with cerclage placement and delivery at 37 weeks under maternal- medicine care. - Patient qualifies for history-indicated cerclage in current . Plan: - Stat referral to Dr. Isaías Randhawa, Maternal- Medicine specialist in [place]: ? MFM to review history, perform transvaginal ultrasound, measure cervix - Recommend cerclage placement at 12-13 weeks gestation. - Strict bedrest until MFM consultation. - Patient education: ? Avoid physical work, exercise, traveling, and sexual intercourse ? Stay hydrated ? Avoid irritant foods that can cause loose motion or gas ? Continue taking Gas-X as needed for bowel spasms - If any issues arise, patient instructed to go to ER and have them contact Dr. Ortiz. Pelvic pressure: - Significant pelvic pressure, especially when showering, and sensation of cervix opening. - Taking Gas-X for relief. - Concerning symptoms given history of cervical insufficiency requiring close monitoring. Plan: - Reinforce need for strict bedrest. - Continue Gas-X as needed for symptom relief. - Immediate evaluation if symptoms worsen. History of preeclampsia with nusknxaec-nn-tqavabv blood pressures: - Previous complicated by preeclampsia with mudumsugd-yn-gzwifoj blood pressures. - Concern about intracranial hypertension and potential hemorrhage. - Increased risk for hypertensive disorders in current . Plan: - M to address blood pressure management and monitoring in . - Close surveillance for signs and symptoms of preeclampsia throughout .
== END 2025-07-07 12:06 | disposition home or self-care (01) ==
LOC: HODSOBC 11:35
PROVIDERS: PCP Physician Assistant; Referring Provider Physician Assistant; Supervising Provider Obstetrics & Gynecology; Visit Provider Obstetrics & Gynecology
DX: O09.291 Supervision of pregnancy with other poor reproductive or obstetric history, first trimester (principal); O34.211 Maternal care for low transverse scar from previous cesarean delivery; O09.211 Supervision of pregnancy with history of pre-term labor, first trimester; Z3A.08 8 weeks gestation of pregnancy; Z87.59 Personal history of other complications of pregnancy, childbirth and the puerperium
CPT/HCPCS: 99214; G0463

== ENCOUNTER → 2025-07-08 | Outpatient (CLI) | payer OTHER, BC, SELFPAY ==
[2025-07-08 09:05] LABS: Misc Send Out* See Sep Rpt
[2025-07-08 09:23] LABS: Collection Type, Urine Clean Catch
[2025-07-08 09:44] LABS: Basophils # (Auto) 0.0 Thou/mm3 (0.0-0.2); Basophils % (Auto) 0 % (0-2.5); Eosinophils # (Auto) 0.1 Thou/mm3 (0.0-0.5); Eosinophils % (Auto) 1 % (0-10); Hematocrit 38.9 % (36.0-46.0); Hemoglobin 12.3 g/dL (12.0-16.0); Immature Granulocytes Auto 0.06 Thou/mm3 (0.00-0.00); Lymphocytes # (Auto) 1.3 Thou/mm3 (1.0-4.8); Lymphocytes % (Auto) 19 % (10-50); Mean Corpuscular HGB Conc 31.6 g/dl (31.0-37.0); Mean Corpuscular Hemoglobin 27.9 pg (25.0-35.0); Mean Corpuscular Volume 88 fL (80-100); Monocytes # (Auto) 0.6 Thou/mm3 (0.0-0.8); Monocytes % (Auto) 9 % (0-12); Neutrophils # (Auto) 4.7 Thou/mm3 (1.8-7.7); Neutrophils % (Auto) 69 % (37-80); Nucleated Red Blood Cell # 0.00 Thou/mm3 (0.00-0.00); Nucleated Red Blood Cell % 0 /100 WBC (0); Platelet Count 224 Thou/mm3 (140-440); RDW Standard Deviation 41.0 fL (36.4-46.3); Red Blood Count 4.41 Miln/mm3 (4.00-5.20); White Blood Count 6.7 Thou/mm3 (3.6-11.0)
[2025-07-08 09:48] LABS: Amorphous Crystals,Urine Present (Absent); Bilirubin,Urine Negative (Negative); Blood,Urine Negative (Negative); Color,Urine Lt-Yellow (Lt Yel-Yel); Culture Indicated,Urine Not Indicated; Glucose, Urine Negative (Negative); Ketones,Urine Negative (Negative); Leukocyte Esterase,Urine Positive (Negative); Nitrite,Urine Negative (Negative); PH,Urine 8.0 (5.0-7.0); Protein,Urine Negative (Neg - Trace); RBC,Urine 3 /hpf (0-3); Specific Gravity,Urine 1.021 (1.001-1.035); Squamous Epithelial Cell,Urine 4 /hpf (0-5); Urobilinogen,Urine Negative mg/dL (0.0-1.0); WBC,Urine 1 /hpf (0-5)
[2025-07-08 09:58] LABS: Glucose Estimated Average 97 mg/dL (80-131); Hemoglobin A1C 5.0 % Hgb (4.8-6.0)
[2025-07-08 09:59] LABS: Clarity,Urine Hazy (Clear/Hazy)
[2025-07-08 10:09] LABS: Thyroid Stimulating Hormone 0.49 uIU/mL (0.55-4.78)
[2025-07-08 10:24] LABS: Syphilis Nonreactive (Nonreactive)
[2025-07-08 10:47] LABS: Hepatitis B Surface Antigen Non Reactive (Non React); Hepatitis C Antibody Non Reactive (Non React); Rubella, IgG Antibody Reactive (Immune)
[2025-07-08 13:53] LABS: Chlamydia trachomatis PCR Negative (Not Detect); Neisseria Gonorrhoeae DNA PCR Negative (Not Detect); Trichomonas Negative (Negative)
[2025-07-08 15:33] LABS: HIV (1&2) Antibody Rapid Non-Reactive
[2025-07-12 07:20] LABS: Sm Antibody* <1.0 NEG AI (<1.0 NEGATIVE)
== END | disposition home or self-care (01) ==
LOC: COPL 08:23
PROVIDERS: PCP Physician Assistant; Referring Provider Obstetrics & Gynecology; Visit Provider Obstetrics & Gynecology
DX: O09.91 Supervision of high risk pregnancy, unspecified, first trimester (principal)
CPT/HCPCS: 36415; 81001; 83036; 84443; 85025; 86235; 86703; 86762; 86780; 86803; 86850; 86900; 86901; 87340; 87491; 87591; 87661

== ENCOUNTER 2025-07-14 10:03 | Outpatient (AMB) | payer OTHER, BC, SELFPAY ==
[2025-07-14 10:42] VITALS: BP 115/74; PULSE 82; RESP 16; TEMP 36.8; O2SAT 98; BMI 29.4
--- NOTE | 2025-07-14 10:42 | OBCLNT_ITS ---
Vital Signs 07/14/25 10:42 Height 1.73 m Height Method Stated Weight 88.054 kg Weight Measurement Method Standing Scale BMI 29.4 BP 115/74 Blood Pressure Source Automatic Cuff Blood Pressure Location Left Upper Arm Position Sitting Respiration 16 Pulse 82 Pulse Source Monitor Temp 98.2 F Temp Source Oral Pulse Oximetry (%) 98 Oxygen Delivery Method Room Air Allergies/Home Meds Allergies & Medications Allergies No Known Allergies Allergy (Verified 07/14/25 10:43) Medication Reconciliation No Known Home Medications 06/25/25 [History Confirmed 07/14/25] Intake Visit Data Collection New Patient or Established: Established Patient (seen at 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 1. Little interest or pleasure in doing things: not at all 2. Feeling down, depressed, or hopeless: not at all Total score: 0 PHQ-9 3. Trouble falling or staying asleep, or sleeping too much: Not at all 4. Feeling tired or having little energy: Not at all 5. Poor appetite or overeating: Not at all 6. Feeling bad about yourself - or that you are a failure or have let yourself or your family down: Not at all 7. Trouble concentrating on things, such as reading the newspaper or watching television: Not at all 8. Moving or speaking so slowly that other people could have noticed? - Or the opposite - being so fidgety or restless that you have been moving around a lot more than usual: not at all 9. Thoughts that you would be better off or of hurting yourself in some way: Not at all Total score: 0 If you checked off any problems, how difficult have these problems made it for you to do your work, take care of things at home, or get along with other people?: not difficult at all Source: Developed by Drs. Ilan Elliott, Savanna Rodriguez, Jose Carlos and colleagues, with an educational shaun from [employer]. 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 Her OB history includes a 17-week loss in 2019 with vaginal pressure and spotting, followed by a successful cerclage-managed complicated by severe preeclampsia. Current transvaginal ultrasound shows viable IUP at 8w0d with FHR 180 bpm. Labs demonstrate appropriate serial hCG rise. Viable IUP at 8w1d. Given history of cervical insufficiency, patient qualifies for history-indicated cerclage. Stat referral to MFM (Dr. Diallo) for TVUS and cervix length assessment; plan cerclage at 12?13 weeks. Strict bedrest advised until evaluation. Spanish Professor on pelvic rest, hydration, and avoidance of exertion or GI irritants. Continue Gas- X PRN. Given prior severe preeclampsia, recommend early MFM involvement for BP surveillance. Labs ordered, NIPT to be scheduled after 9 weeks. Follow-up in 2 weeks or sooner PRN. 07/14/25 -?-?-?-?-?-?-?-?-?-?-?-?- 9w 1d 88.054 kg 115/74 absent Denies CLINE, VC, and epigastric pain. - Gail Nicolas is a female at 9 weeks 5 days gestation with a history of cerclage in previous . - She reports a history of 4 miscarriage s prior to her daughter. - She describes her current an d her daughter as miracle babies. - She states she previously thought she could not have children. - Patient expresses desire to have another child after her daughter . - Schedule for August 17 at 10:30 for a doctor appointment - Complete pending tests/procedures befo re next appointment - Has appt with Dr Diallo ([facility]) DUONG Calculator Estimated Delivery Date Method Current WG Current Estimate 02/15/26 Ultrasound #1 9w 5d Office Procedures OBC Clinic LOC & Office Proc's Nursing/Assessment Patient Status: Established Patient OB Clinic Nursing Assessment: Medication Reconciliation, Update PMH in EMR and Vital Signs OB Clinic Coordination of Care: Education Complex Pt/Fam, Consent,records obtained, informed consent, Lab and Imaging orders, Results/Orders obtained and Staff clarify orders Special Needs: Heart tones Established Patient Charge Established Patient Point Assignment: 115 Established Patient Point Charge: EP Level 3 (80-115) Assessment & Plan Diagnosis / Problem List (1) Maternal care for low transverse scar from previous delivery: Status: Acute (2) History of labor, current : Status: Acute (3) Supervision of high risk , unspecified, first trimester: Status: Acute Plan Problem List - (9 weeks 5 days gestation) - History of cerclage in previous Plan - Schedule for August 17 at 10:30 for a doctor appointment - Complete pending tests/procedures before next appointment - Has appt with Dr Diallo ([facility]) 1. Progress Reviewed gestational age, growth, and heart rate. Planned frequent visits (every 2 weeks until 36 weeks, then weekly). 2. Instructed patient to monitor movements and report decreases im mediately. 3. Testing Counseled on routine third-trimester labs per guidelines. Discussed potential need for ultrasound or monitoring based on risk factors. 4. Preeclampsia Precaution Educated on preeclampsia signs: severe headache, vision changes, right upper quadrant pain, sudden swelling. Advised urgent reporting of symptoms and discussed blood pressure monitoring if high risk. 5. Labor Precautions Reviewed labor signs: regular contractions, pelvic pressure, back pain, bleeding, or fluid leakage. Instructed to seek immediate care for these symptoms. 6. Lifestyle and Delivery Preparation Reinforced vitamins, nutrition, and safe activity. Discussed plan, pain management, and . Advised on labor preparation (e.g., hospital bag) and expectations. 7. Psychosocial Support Assessed emotional well-being and offered resources for mental health or parenting support. 8. Specialty Consultation Scheduled appointment with Dr. Diallo (Maternal- Medicine) for NT ultrasound and consultation regarding potential cerclage placement.
== END 2025-07-14 10:51 | disposition home or self-care (01) ==
LOC: HODSOBC 10:03
PROVIDERS: PCP Physician Assistant; Referring Provider Physician Assistant; Supervising Provider Obstetrics & Gynecology; Visit Provider Obstetrics & Gynecology
DX: O09.291 Supervision of pregnancy with other poor reproductive or obstetric history, first trimester (principal); O34.211 Maternal care for low transverse scar from previous cesarean delivery; O09.211 Supervision of pregnancy with history of pre-term labor, first trimester; Z87.59 Personal history of other complications of pregnancy, childbirth and the puerperium; Z3A.09 9 weeks gestation of pregnancy
CPT/HCPCS: 99213; G0463

== ENCOUNTER 2025-07-22 16:12 | Emergency (ER) | payer OTHER, BC, SELFPAY ==
[2025-07-22 16:13] VITALS: BMI 29.3
[2025-07-22 16:45] VITALS: BP 134/88; PULSE 85; RESP 20; TEMP 37.3; O2SAT 99
--- NOTE | 2025-07-22 16:50 | EKG_ITS ---
[facility] Test Date: 2025-07-22 Pat Name: JACLYN ROJAS Department: Room: - Gender: Female Machine Wiper: : 1995 Requested By: Jc Rodney (ELIGIO) Order Number: [id number] Reading MD: Jc Rodney (MANAGEMENT LEAD) Measurements Intervals [place] Rate: 90 P: 30 CT: 150 QRS: 46 QRSD: 89 T: 3 QT: 367 QTc: 451 Interpretive Statements SINUS RHYTHM No previous ECG available for comparison /store/S0/[id number]/[id number].pdf
--- NOTE | 2025-07-22 16:50 | PD.EDRME ---
Rapid Medical Screening Exam RME Arrival date/time: 07/22/25 16:12 30-year-old female presents to the Emergency Department for plaint of headache, dizziness, fatigue Chief Complaint: General Adult/Misc Complain Vital signs: Vital Signs Temperature 99.1 F 07/22/25 16:45 Pulse Rate 85 07/22/25 16:45 Respiratory Rate 20 07/22/25 16:45 Blood Pressure 134/88 H 07/22/25 16:45 Pulse Oximetry (%) 99 07/22/25 16:45 Oxygen Delivery Method Room Air 07/22/25 16:45
[2025-07-22 17:28] LABS: Basophils # (Auto) 0.0 Thou/mm3 (0.0-0.2); Basophils % (Auto) 0 % (0-2.5); Eosinophils # (Auto) 0.1 Thou/mm3 (0.0-0.5); Eosinophils % (Auto) 1 % (0-10); Hematocrit 36.1 % (36.0-46.0); Hemoglobin 12.1 g/dL (12.0-16.0); Immature Granulocytes Auto 0.06 Thou/mm3 (0.00-0.00); Lymphocytes # (Auto) 2.1 Thou/mm3 (1.0-4.8); Lymphocytes % (Auto) 23 % (10-50); Mean Corpuscular HGB Conc 33.5 g/dl (31.0-37.0); Mean Corpuscular Hemoglobin 28.6 pg (25.0-35.0); Mean Corpuscular Volume 85 fL (80-100); Monocytes # (Auto) 0.8 Thou/mm3 (0.0-0.8); Monocytes % (Auto) 9 % (0-12); Neutrophils # (Auto) 6.0 Thou/mm3 (1.8-7.7); Neutrophils % (Auto) 66 % (37-80); Nucleated Red Blood Cell # 0.00 Thou/mm3 (0.00-0.00); Nucleated Red Blood Cell % 0 /100 WBC (0); Platelet Count 197 Thou/mm3 (140-440); RDW Standard Deviation 37.6 fL (36.4-46.3); Red Blood Count 4.23 Miln/mm3 (4.00-5.20); White Blood Count 9.1 Thou/mm3 (3.6-11.0)
[2025-07-22 17:35] LABS: Collection Type, Urine Clean Catch
[2025-07-22 17:42] LABS: Bilirubin,Urine Negative (Negative); Blood,Urine Negative (Negative); Clarity,Urine Clear (Clear/Hazy); Color,Urine Colorless (Lt Yel-Yel); Culture Indicated,Urine Not Indicated; Glucose, Urine Negative (Negative); Ketones,Urine Negative (Negative); Leukocyte Esterase,Urine Negative (Negative); Nitrite,Urine Negative (Negative); PH,Urine 6.5 (5.0-7.0); Protein,Urine Negative (Neg - Trace); RBC,Urine 3 /hpf (0-3); Specific Gravity,Urine 1.006 (1.001-1.035); Squamous Epithelial Cell,Urine < 1 /hpf (0-5); Urobilinogen,Urine Negative mg/dL (0.0-1.0); WBC,Urine 2 /hpf (0-5)
--- NOTE | 2025-07-22 17:43 | EDNOTE_ITS ---
ED General RME/HPI General Chief complaint: General Adult/Misc Complain Stated complaint: 10WK PREG, VAG PRESSURE, BLURRED VISION, HEADACHE Time Seen by Provider: 07/22/25 17:42 Arrival date/time: 07/22/25 16:12 Limitations: no limitations RME / HPI RME / HPI narrative: 07/22/25 16:12 30-year-old female presents to the Emergency Department for plaint of headache, dizziness, fatigue DR. FREITAS MAIN ED EVALUATION: 30 year old female who is currently 10 weeks gestational age, A2, idiopathic intracranial hypertension presents to the ED for evaluation of headache and blurred vision today. Headache described as pressure in sensation that is located most to the frontal area. Additionally complains of vaginal pressure with occasional sharp pain. Accompanied by vaginal discharge that is yellow in color. Denies any vaginal bleeding. Denies any fevers, chills, sweats, chest pain, cough, shortness of breath, vomiting, diarrhea, or constipation. Patient states she had an ultrasound showing an 8 week gestational sac on July 07. States she has history of cerclage at 16 weeks with previous . LMP May 09, 2025 Related Data Home Medications ?Medication ?Instructions ?Recorded ?Confirmed No Known Home Medications 06/25/2511/07 Allergies Allergy/AdvReac Type Severity Reaction Status Date / Time No Known Allergies Allergy Verified 07/22/25 16:16 Review of Systems Review of Systems Systems Reviewed: All systems reviewed, normal except as documented Past Medical History Social History SMOKING STATUS: Never smoker SECOND HAND EXPOSURE: No SUBSTANCE USE: does not use ED Exam General Limitations: Present no limitations General appearance: Present alert and in no apparent distress Head Head exam: Present atraumatic Eye Eye exam: Present normal appearance, PERRL and EOMI ENT ENT exam: Present normal exam, normal oropharynx and mucous membranes moist Neck Neck exam: Present normal inspection, full ROM and trachea midline Chest Chest inspection: Present normal inspection and symmetric chest wall rise Respiratory Respiratory exam: Present normal lung sounds bilaterally Cardiovascular Cardiovascular exam: Present regular rate, normal rhythm and normal heart sounds Abdominal Exam Abdominal exam: Present soft and normal bowel sounds Speculum exam: Present other (I placed the speculum in and saw her cervix, the anterior portion of cervix was hanging over by a 1cm or so, intact, no bulging, no fluids, no bloody mucus, or unusual discharge, no bimanual exam performed.) Extremities Exam Extremities exam: Present normal inspection and full ROM Back Exam Back exam: Present normal inspection and full ROM Neurological Exam Neurological exam: Present alert, oriented X3 and CN II-XII intact Psychiatric Psychiatric exam: Present normal affect and normal mood Skin Skin exam: Present warm, dry, intact and normal color Course Quality Measures none Orders Category Date Time Status Executive Housekeeper NOW Care 07/22/25 17:54 Completed Continuous Pulse Oximetry NOW Care 07/22/25 17:54 Completed EKG (ED ONLY) *Do not use* NOW Care 07/22/25 16:50 Completed Insert IV NOW Care 07/22/25 17:54 Completed EKG (ED Only) Stat Exams 07/22/25 16:50 Draft US OB <= 14 weeks fetus Stat Exams 07/22/25 17:55 Completed B-Type Natriuretic Peptide Stat Lab 07/22/25 17:20 Completed Beta HCG,Quantitative Stat Lab 07/22/25 17:20 Completed CBC Stat Lab 07/22/25 17:20 Completed Comprehensive Metabolic Panel Stat Lab 07/22/25 17:20 Completed Magnesium Stat Lab 07/22/25 17:20 Completed Partial Thromboplastin Time Stat Lab 07/22/25 17:20 Completed Prothrombin Time with INR Stat Lab 07/22/25 17:20 Completed Troponin I Stat Lab 07/22/25 17:20 Completed Urinalysis, C/S if Indicated Stat Lab 07/22/25 17:25 Completed Sodium Chloride 0.9% 1000 ml [Ns] 1,000 ml Med 07/22/25 17:54 Discontinued IV 999 mls/hr Vital Signs Vital signs: Vital Signs Temperature 99.1 F 07/22/25 16:45 Pulse Rate 85 07/22/25 16:45 Respiratory Rate 20 07/22/25 16:45 Blood Pressure 134/88 H 07/22/25 16:45 Pulse Oximetry (%) 99 07/22/25 16:45 Oxygen Delivery Method Room Air 07/22/25 16:45 Pulse ox is 99% on room air which is adequate. Discharge Plan Plan Patient Disposition: HOME (Self Care) Discharge Disposition comment: Stable Prescriptions/Referrals Prescriptions/Med Rec: No Action No Known Home Medications Referrals: Jimi Melo PA-C [Primary Care Provider] - In 1 week Problem List Clinical Impression: First trimester Impression comment: First trimester screening Patient/Caregiver Discharge Instructions Education Materials: First Trimester Additional Instructions: Avoid heavy lifting pushing pulling. Pelvic rest. Tylenol as needed for pain. Follow-up with NETWORK MANAGEMENT SPECIALIST physician for consideration of cervical cerclage as indicated. Return if worsening i.e. vaginal bleeding cramping fevers chills or worsening illness Print Language: Irish Stand Alone Forms: Lizzy Award Info., Patient Portal Info Letter MDM Narrative Sign Out note: 1800p: Patient signed out to Dr. England pending labs, ultrasound, and final disposition. MDM hospital course (for use when minimal MDM required): Mary Carmen Aranda am scribing for and in the presence of Dr. Freitas. Clinical Information Provided by: patient Medical Records reviewed [facility] Meds/Rx considered, not ordered None Labs/Rad/Tests considered, not ordered None Chronic Illness/Social Conditions which may negatively complicate care or outcome(s)-explain: None or not applicable EKG Interpretation EKG #1: EKG Interpretation: EKG @ 16:57p. Normal sinus rhythm, rate 90, no STEMI. Medication Administration(s) none Medication Administration History Discontinued Medications Sodium Chloride (Ns) 1,000 mls @ 999 mls/hr IV .Q1H1M ONE Stop: 07/22/25 18:54 Last Infusion: 07/22/25 19:19 Dose: Infused Documented By: Admin: 07/22/25 18:15 Dose: 999 mls/hr Documented By: RIYA See above
[2025-07-22 17:55] LABS: B-Type Natriuretic Peptide 23 pg/mL (0-100)
--- NOTE | 2025-07-22 17:55 | XR_ITS ---
Examination: Complete OB ultrasound, less than 14 weeks, transabdominal Date and time of exam: July 22, 2025, 1953 hours INDICATIONS: Pelvic pressure 3 days, preop cerclage Technique: Obstetrical ultrasound images less than 14 weeks performed via transabdominal imaging Findings: A normal shaped single intrauterine gestation is present in the uterus. CRL 3.8 cm corresponds to 10 weeks 5 days gestational age Cardiac motion 169 bpm Ultrasonographic survey of visible and placental structures unremarkable. Amniotic fluid volume appears appropriate for this estimated gestational age. Right ovary 3.4 cm arterial flow. Left ovary 5.0 cm arterial flow IMPRESSION: Viable intrauterine gestation 10 weeks 5 days.
[2025-07-22 17:57] LABS: INR 0.9 (0.9-1.3); Partial Thromboplastin Time 23.7 Seconds (22.0-36.0); Prothrombin Time 9.9 Seconds (9.0-12.2)
[2025-07-22 17:59] LABS: Alanine Aminotransferase 13 U/L (10-49); Albumin, Serum 4.2 gm/dL (3.5-5.0); Albumin/Globulin Ratio 1.8 (1.2-2.2); Alkaline Phosphatase 55 U/L (46-116); Anion Gap 9 (7-16); Aspartate Amino Transferase 16 U/L (0-34); BUN/Creatinine Ratio 12 Ratio (12-20); Bilirubin,Total 0.2 mg/dL (0.3-1.2); Blood Urea Nitrogen 6 mg/dL (9-23); Calcium 9.4 mg/dL (8.3-10.6); Calcium (Corrected) 9.4 mg/dL (8.5-10.1); Carbon Dioxide 24.0 mMol/L (20.0-31.0); Chloride 105 mMol/L (98-107); Creatinine (Component) 0.5 mg/dL (0.6-1.3); Estimated Creatinine Clearance 194.0 mL/min (>60); Globulin 2.4 gm/dL (2.3-3.5); Glucose 94 mg/dL (74-106); Magnesium 2.0 mg/dL (1.6-2.6); Osmolality,Calculated 273 (275-295); Potassium 4.0 mMol/L (3.4-5.1); Sodium 138 mMol/L (136-145); Total Protein 6.6 gm/dL (5.7-8.2); Troponin I < 0.002 ng/mL (0.0-0.045); eGFR > 60 See Note
[2025-07-22] MEDS: SODIUM CHLORIDE 0.9% 1000 ML 1,000 ML 999 ML IV (18:15)
--- NOTE | 2025-07-22 18:19 | PD.EDADDENDU ---
Emergency Room Addendum Addendum Narrative: 1800: Care assumed from Dr. Espinal, the previous shift emergency physician. Past medical, surgical, social and family history reviewed. Vitals and home medications reviewed. Results and treatment plan discussed. I will assume the care of the patient at this time and will follow the patient. Please refer to the emergency department record for history and examination from initial visit. 30yo female who is 10 weeks EGA presenting with concern for cervical incontincence. Please see PE findings from initial provider, indicates no obvious incompetence. Patient without ongoing vaginal bleeding or wild of fluid. She is hemodynamically stable. Lab markers are unremarkable. Pelvic US performed and demonstrated 10 weeks IUP and a rate of 120, essentially normal early ultrasound. Will re-assure and discharge the patient home. RADIOLOGY RESULTS: [place] [facility] Report Signed Patient: JACLYN ROJAS Record#: [id number] Birthdate: 1995 Age/Sex: 30 / F Location: [facility] Attending Dr: Ordering Physician: Isaias Espinal MD Date of Service: 07/22/25 Procedure(s): US OB <= 14 weeks fetus Accession Number(s): [id number] cc: Jimi Melo PA-C; Isaias Espinal MD; Marco Lee MD~ Examination: Complete OB ultrasound, less than 14 weeks, transabdominal Date and time of exam: July 22, 2025, 1953 hours INDICATIONS: Pelvic pressure 3 days, preop cerclage Technique: Obstetrical ultrasound images less than 14 weeks performed via transabdominal imaging Findings: A normal shaped single intrauterine gestation is present in the uterus. CRL 3.8 cm corresponds to 10 weeks 5 days gestational age Cardiac motion 169 bpm Ultrasonographic survey of visible and placental structures unremarkable. Amniotic fluid volume appears appropriate for this estimated gestational age. Right ovary 3.4 cm arterial flow. Left ovary 5.0 cm arterial flow IMPRESSION: Viable intrauterine gestation 10 weeks 5 days. Dictated By: Marco Lee MD Signed By: <Electronically signed by Marco Lee MD in OV> 07/22/252032
[2025-07-22 18:34] LABS: Beta HCG,Quantitative 95276 mIU/mL (<5.0)
[2025-07-22 18:55] VITALS: BP 117/63; PULSE 77; RESP 16; O2SAT 100
[2025-07-22 20:54] VITALS: BP 127/85; PULSE 95; RESP 14; TEMP 37; O2SAT 99
== END 2025-07-22 20:55 | disposition home or self-care (01) ==
PROVIDERS: Nurse Practitioner Primary Care; Emergency Provider Emergency Medicine; PCP Physician Assistant
DX: O26.891 Other specified pregnancy related conditions, first trimester (principal); R10.20 Pelvic and perineal pain unspecified side; Z3A.10 10 weeks gestation of pregnancy
CPT/HCPCS: 36415; 76801; 80053; 81001; 83735; 83880; 84484; 84702; 85025; 85610; 85730; 93005; 96360; 99284; J7030

== ENCOUNTER 2025-08-06 10:56 | Outpatient (AMB) | payer OTHER, BC, SELFPAY ==
[2025-08-06 11:14] VITALS: BP 120/78; PULSE 92; RESP 18; TEMP 36.2; O2SAT 98
--- NOTE | 2025-08-06 11:14 | AMB.OBVISIT ---
Vital Signs 08/06/25 11:14 Weight 89.074 kg Weight Measurement Method Standing Scale BP 120/78 Blood Pressure Source Automatic Cuff Blood Pressure Location Left Upper Arm Position Sitting Respiration 18 Pulse 92 Pulse Source Monitor Temp 97.2 F Temp Source Oral Pulse Oximetry (%) 98 Oxygen Delivery Method Room Air Allergies/Home Meds Allergies & Medications Allergies No Known Allergies Allergy (Verified 08/06/25 11:15) Medication Reconciliation No Known Home Medications 06/25/25 [History Confirmed 08/06/25] Intake Visit Data Collection New Patient or Established: Established Patient (seen at [facility] within 3 years) Reason for Visit:: OBC Seen by Clinical Staff ONLY (RN/MA): No Parts Coordinator Required: No Do You Feel Safe at Home: Yes Authorities Contacted: N/A PCP or OBGYN visit in last 3 months: Yes Date of Last PCP or OBGYN visit: 07/22/25 Hx Now: Yes Are you currently on any form of Control: No Pain Present Currently: No Pain Scale Used: Dietz-Cagle/Numerical Pain scale:: 0 Smoking Status Smoking Status: Never smoker Immunizations Flu Vaccine in the Last 12 Months: No Flu Vaccine Exclusion Criteria: No Exclusion Criteria Questionnaires Covid-19 Vaccine Questionnaire Has patient been vacinated for Covid-19 Have you been vacinated for Covid-19: Yes PHQ-9 PHQ-2 Over the last 2 weeks, how often have you been bothered by any of the following problems? 1. Little interest or pleasure in doing things: not at all 2. Feeling down, depressed, or hopeless: not at all Total score: 0 PHQ-9 3. Trouble falling or staying asleep, or sleeping too much: Not at all 4. Feeling tired or having little energy: Not at all 5. Poor appetite or overeating: Not at all 6. Feeling bad about yourself - or that you are a failure or have let yourself or your family down: Not at all 7. Trouble concentrating on things, such as reading the newspaper or watching television: Not at all 8. Moving or speaking so slowly that other people could have noticed? - Or the opposite - being so fidgety or restless that you have been moving around a lot more than usual: not at all 9. Thoughts that you would be better off or of hurting yourself in some way: Not at all Total score: 0 If you checked off any problems, how difficult have these problems made it for you to do your work, take care of things at home, or get along with other people?: not difficult at all Source: Developed by Drs. Ilan Elliott, Savanna Rodriguez, Jose Carlos and colleagues, with an educational shaun from [employer]. 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 - She was previously seen on 06-11-2025 and 06-15-2025 for monitoring. - Patient reports pain related to a cyst but denies any vaginal bleeding, discharge, or cramping. - She denies any uterine bleeding or other complaints related to her . Plan - Draw quantitative HCG today - Hold ultrasound orders (transabdominal and transvaginal) until HCG results are reviewed - Provider will call patient Saturday morning with HCG results and determine timing for ultrasound based on HCG trend - No follow-up appointment scheduled at this time 07/07/25 <del>?</del> 8w 1d 90.492 kg 124/82 absent Gailmadalyn Nicolas, a at 8w1d by LMP, presents with pelvic pressure described as a sensation of the cervix opening, worsened by showering and sitting. 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 Her OB history includes a 17-week loss in 2019 with vaginal pressure and spotting, followed by a successful cerclage-managed complicated by severe preeclampsia. Current transvaginal ultrasound shows viable IUP at 8w0d with FHR 180 bpm. Labs demonstrate appropriate serial hCG rise. Viable IUP at 8w1d. Given history of cervical insufficiency, patient qualifies for history-indicated cerclage. Stat referral to [facility] (Dr. Diallo) for TVUS and cervix length assessment; plan cerclage at 12?13 weeks. Strict bedrest advised until evaluation. 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 Continue Gas-X PRN. Given prior severe preeclampsia, recommend early [facility] involvement for BP surveillance. Labs ordered, NIPT to be scheduled after 9 weeks. Follow-up in 2 weeks or sooner PRN. 07/14/25 <del>?</del> 9w 1d 88.054 kg 115/74 absent Denies CLINE, VC, and epigastric pain. - Gail Nicolas is a female at 9 weeks 5 days gestation with a history of cerclage in previous . - She reports a history of 4 miscarriages prior to her daughter. - She describes her current and her daughter as miracle babies. - She states she previously thought she could not have children. - Patient expresses desire to have another child after her daughter. - Schedule for August 17 at 10:30 for a doctor appointment - Complete pending tests/procedures before next appointment - Has appt with Dr Diallo ([facility]) 08/06/25 <del>?</del> 12w 3d 89.074 kg 120/78 absent - Gail Nicolas is presenting for a visit at 12 weeks and 3 days gestation with a history of incompetent cervix, and idiopathic intracranial hypertension. - She has a history of prior 17-week loss and a subsequent successful with cerclage placement that resulted in delivery at 37 weeks. - Patient underwent a first trimester ultrasound at [facility] on August 03, 2025. - She has idiopathic intracranial hypertension diagnosed at age 31 and is followed by neuro-ophthalmology every 3 months. - She was previously on Diamox and Lasix for her intracranial hypertension, which were discontinued at the beginning of . - Patient denies pre-eclampsia, noting that this was inaccurately mentioned in her records and should be corrected. Plan - History-indicated cerclage placement planned based on past successful outcome - Stat referral submitted today with authorization expected Saturday - Procedure scheduled for Saturday or Saturday under general anesthesia - Ultrasound before and after cerclage procedure to assess placement - Anatomy survey and MFM follow-up at 20 weeks - Cerclage removal planned at 36 to 37 weeks - Patient to remain on leave, possible return after 20 weeks until 30 weeks pending further evaluation - Correct medical records to reflect idiopathic intracranial hypertension rather than pre-eclampsia DUONG Calculator Estimated Delivery Date Method Current WG Current Estimate 02/15/26 Ultrasound #1 12w 3d Notes Visit Date: 08/06/25 Last Updated by: Jose Ortiz MD - Date: 08/03/2025 - First trimester ultrasound at [facility]: Early anatomy survey within normal limits with limited study due to early gestational age. Cervical length 2.2 cm. Uterus normal, right ovary not visualized, left ovary not visualized, cul de sac no fluid noted. Both adnexa appeared unremarkable. Visit Date: 06/25/25 Last Updated by: Jose Ortiz MD Laboratory, Imaging, and Diagnostic Test Results - Date: 06/11/2025 - Serum hC - Date: 06/15/2025 - Serum hC - Date: 06/17/2025 - Transvaginal ultrasound: Empty intrauterine sac corresponding to 6 weeks and 0 days - Transabdominal ultrasound: Sac corresponding to 6 weeks and 2 days, no pole, no cardiac activity Office Procedures OBC Clinic LOC & Office Proc's Nursing/Assessment Patient Status: Established Patient OB Clinic Nursing Assessment: Medication Reconciliation, Update PMH in EMR and Vital Signs OB Clinic Coordination of Care: Consent,records obtained, informed consent, Lab and Imaging orders, Results/Orders obtained and Staff clarify orders Special Needs: Heart tones Established Patient Charge Established Patient Point Assignment: 95 Established Patient Point Charge: EP Level 3 (80-115) Assessment & Plan Diagnosis / Problem List (1) Cervical insufficiency during in first trimester, antepartum: Status: Acute (2) History of labor, current : Status: Acute Plan Problem List - Incompetent cervix - Idiopathic intracranial hypertension - at 12 weeks 3 days - Prior loss at 17 weeks Assessment 12 weeks and 3 days intrauterine with history of incompetent cervix and prior 17-week loss, now status post successful cerclage with delivery at 37 weeks in previous . Patient has idiopathic intracranial hypertension diagnosed at age 31, currently managed by neuro-ophthalmology with previous medications Diamox and Lasix discontinued at onset. First trimester ultrasound performed at [facility] on 08-03-2025 showed early anatomy survey within normal limits with limited study due to early gestational age, cervical length measured at 2.2 centimeters, normal uterus, bilateral ovaries not visualized, unremarkable adnexa, and no cul de sac fluid. Patient also has history of sacral arch. Plan - History-indicated cerclage placement planned based on past successful outcome - Stat referral submitted today with authorization expected Saturday - Procedure scheduled for Saturday or Saturday under general anesthesia - Ultrasound before and after cerclage procedure to assess placement - Anatomy survey and MFM follow-up at 20 weeks - Cerclage removal planned at 36 to 37 weeks - Patient to remain on leave, possible return after 20 weeks until 30 weeks pending further evaluation - Correct medical records to reflect idiopathic intracranial hypertension rather than pre-eclampsia
== END 2025-08-06 11:43 | disposition home or self-care (01) ==
LOC: HODSOBC 10:56
PROVIDERS: Supervising Provider Obstetrics & Gynecology; Visit Provider Obstetrics & Gynecology
DX: O09.891 Supervision of other high risk pregnancies, first trimester (principal); O34.31 Maternal care for cervical incompetence, first trimester; O09.211 Supervision of pregnancy with history of pre-term labor, first trimester; O99.351 Diseases of the nervous system complicating pregnancy, first trimester; Z3A.12 12 weeks gestation of pregnancy; G93.2 Benign intracranial hypertension
CPT/HCPCS: 99213; G0463

== ENCOUNTER 2025-08-12 05:45 | Day surgery (SDC) | payer OTHER, BC, SELFPAY ==
[2025-08-10 07:02] VITALS: BMI 30.1
[2025-08-10 08:07] LABS: Basophils # (Auto) 0.0 Thou/mm3 (0.0-0.2); Basophils % (Auto) 0 % (0-2.5); Eosinophils # (Auto) 0.1 Thou/mm3 (0.0-0.5); Eosinophils % (Auto) 1 % (0-10); Hematocrit 34.7 % (36.0-46.0); Hemoglobin 11.4 g/dL (12.0-16.0); Immature Granulocytes Auto 0.04 Thou/mm3 (0.00-0.00); Lymphocytes # (Auto) 1.6 Thou/mm3 (1.0-4.8); Lymphocytes % (Auto) 24 % (10-50); Mean Corpuscular HGB Conc 32.9 g/dl (31.0-37.0); Mean Corpuscular Hemoglobin 28.1 pg (25.0-35.0); Mean Corpuscular Volume 86 fL (80-100); Monocytes # (Auto) 0.6 Thou/mm3 (0.0-0.8); Monocytes % (Auto) 9 % (0-12); Neutrophils # (Auto) 4.4 Thou/mm3 (1.8-7.7); Neutrophils % (Auto) 65 % (37-80); Nucleated Red Blood Cell # 0.00 Thou/mm3 (0.00-0.00); Nucleated Red Blood Cell % 0 /100 WBC (0); Platelet Count 184 Thou/mm3 (140-440); RDW Standard Deviation 37.9 fL (36.4-46.3); Red Blood Count 4.06 Miln/mm3 (4.00-5.20); White Blood Count 6.8 Thou/mm3 (3.6-11.0)
[2025-08-10 08:38] LABS: Alanine Aminotransferase < 7 U/L (10-49); Albumin, Serum 4.2 gm/dL (3.5-5.0); Albumin/Globulin Ratio 2.0 (1.2-2.2); Alkaline Phosphatase 40 U/L (46-116); Anion Gap 8 (7-16); Aspartate Amino Transferase 15 U/L (0-34); BUN/Creatinine Ratio 12 Ratio (12-20); Bilirubin,Total 0.3 mg/dL (0.3-1.2); Blood Urea Nitrogen 6 mg/dL (9-23); Calcium 8.8 mg/dL (8.3-10.6); Calcium (Corrected) 8.8 mg/dL (8.5-10.1); Carbon Dioxide 24.2 mMol/L (20.0-31.0); Chloride 107 mMol/L (98-107); Creatinine (Component) 0.5 mg/dL (0.6-1.3); Estimated Creatinine Clearance 196.5 mL/min (>60); Globulin 2.1 gm/dL (2.3-3.5); Glucose 90 mg/dL (74-106); Osmolality,Calculated 275 (275-295); Potassium 4.4 mMol/L (3.4-5.1); Sodium 139 mMol/L (136-145); Total Protein 6.3 gm/dL (5.7-8.2); eGFR > 60 See Note
[2025-08-12] VITALS (11 sets, daily range): BP systolic 105–137; BP diastolic 64–80; PULSE 76–100; RESP 12–22; TEMP 36.4–37.1; O2SAT 98–100; BMI 29.9
--- NOTE | 2025-08-12 08:09 | SUR.PHASEI ---
pt arrived to PACU via gurney drowsy but arouses to voice, breathing unlabored, peripad in place-clean and dry. Report from Mary VELOZ and Dr Mendieta
--- NOTE | 2025-08-12 08:10 | SUR.PHASEI ---
per Dr Ortiz, hold patient until ultrasound is complete
--- NOTE | 2025-08-12 08:15 | PD.GYNPROC ---
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 Informed consent was obtained, and the patient was brought to the operating room. Identity was confirmed using two patient identifiers. The patient was positioned in the lithotomy position. The cervix was visualized using a vaginal speculum. The cervix was noted to be incompetent and dilated to approximately fingertip. The cervical cerclage procedure was planned to prevent further dilation and potential labor. A 5mm Mersilene suture was used to place the cervical cerclage at the lower segment of the cervix. The suture was placed in a purse-string fashion around the cervical os, carefully avoiding membranes. The suture was tightened to provide sufficient cervical support. The vagina & cervix was inspected for any signs of trauma or bleeding. No complications were noted during placement of the cerclage. Hemostasis was confirmed. The patient was transferred to recovery in stable and awake condition. All instrument, sponge, and lap counts were correct ?2. Urine output (mL): 100 Specimen: none Estimated blood loss (ml): 10 Surgical staff Operation Date: 08/12/25 07:30 Case Staff Anesthesiologist: Heath Mendieta Diagnosis Discharge Diagnosis (1) Cervical insufficiency during in first trimester, antepartum: Status: Acute (2) Maternal care for low transverse scar from previous delivery: Status: Acute (3) History of labor, current : Status: Acute Problem List Completed Was Problem List Reviewed/Reconciled?: Yes
--- NOTE | 2025-08-12 08:25 | SUR.PHASEI ---
pt able to tolerate oral fluids without difficulty swallowing or n/v
[2025-08-12] MEDS: fentaNYL CIT INJ 50 mCg/ML AMP 2ML IVP (08:52)
--- NOTE | 2025-08-12 09:18 | XR_ITS ---
EXAMINATION: age Limited TECHNIQUE: Limited transabdominal sonographic images pelvis Date and time: August 12, 2025, 0947 hours INDICATIONS: Confirm heart tones post cerclage placement FINDINGS: Cardiac motion 147 bpm IMPRESSION: Cardiac motion 147 bpm
--- NOTE | 2025-08-12 09:40 | SUR.PHASEII ---
ultrasound at bedside
--- NOTE | 2025-08-12 10:00 | SUR.PHASEII ---
pt awake, alert, able to follow commands, breathing unlabored, VS stable, pt able to dress self and ambulate to wheelchair with steady gait, discharge instructions given with spouse present, all questions answered, pt discharged via wheelchair with all belongings and copies of discharge paperwork.
--- NOTE | 2025-08-16 13:28 | PD.ANESPROG ---
Documentation for date of: 08/16/25 POST ANESTHESIA NOTE: Patient had general LMA anesthesia for cervical cerclage on 08/12/25. I just called and spoke with her on the phone and she reported feeling dizzy the next day almost like passing out . She denied vomiting but reported she has had on going nausea with her including on the day of surgery in pre-op. I reported she spoke with Dr Ortiz about her dizziness. She endorsed she is able to tolerate oral intake. I advised her to follow Dr. Ortiz's advice. She had no further questions for me and was thankful. Heath Mendieta MD Anesthesia Progress Note Progress Note Most recent Vital Signs: Last Vital Signs Temp 97.6 F 08/12/25 09:45 Pulse 82 08/12/25 09:30 Resp 19 08/12/25 09:45 BP 124/67 08/12/25 09:45 Pulse Ox 99 08/12/25 09:45 O2 Flow Rate 2 08/12/25 08:19
== END 2025-08-12 10:00 | disposition home or self-care (01) ==
PROVIDERS: PCP Physician Assistant; Referring Provider Obstetrics & Gynecology; Visit Provider Obstetrics & Gynecology
PROC: 0UVC7ZZ Restriction of Cervix, Via Natural or Artificial Opening (ICD-10-PCS; CPT 57700; principal; 2025-08-12 07:30)
DX: O34.31 Maternal care for cervical incompetence, first trimester (principal); Z3A.13 13 weeks gestation of pregnancy
CPT/HCPCS: 59320; 36415; 76815; 80053; 85025; 86850; 86900; 86901; A4217; A4649; J0690; J2371; J2405; J2704; J2765; J3010; J3490

== ENCOUNTER 2025-08-21 12:19 | Emergency (ER) | payer OTHER, BC, SELFPAY ==
[2025-08-21 12:52] VITALS: BP 115/73; PULSE 93; RESP 16; TEMP 36.8; O2SAT 98; BMI 29.6
--- NOTE | 2025-08-21 13:00 | XR_ITS ---
Examination: Complete OB ultrasound greater than 14 weeks Date and time of exam: 08/21/2025, 1:56 p.m. COMPARISON: 08/12/2025 INDICATION: wellbeing Findings: Single viable uterine in the breech presentation. Placenta is posterior and low-lying approximately 1 cm from the cervix. Fetus is in breech presentation. ALEXANDRA: 8.1 cm is within normal limits. Cervical length: 3.4 cm. Cardiac motion: 148 bpm Four-chamber heart is not clearly seen. bladder, kidneys not well visualized visualized. stomach and spine appear within normal limits. Bilateral ovaries appear normal with normal arterial flow. Estimated weight 108.9 g. IMPRESSION: Single viable intrauterine as above with estimated gestational age 15 weeks 0 days. Posterior low-lying placenta
--- NOTE | 2025-08-21 13:06 | EDNOTE_ITS ---
Nausea/Vomit./Diarrhea-RME/HPI General Chief complaint: Nausea/Vomiting/Diarrhea Stated complaint: Syncope, vomiting, 14 weeks 6 days OB Time Seen by Provider: 08/21/25 12:26 Arrival date/time: 08/21/25 12:19 This is a 30-year-old female who reports nausea, vomiting and feeling lightheaded. Patient states that she feels like she is in a pass out. Patient states she has not been able to keep anything down. Patient reports that her daughter jumped on her head while she was laying down this morning and she got a headache. Patient states she was nauseous but she is always nauseous in the morning. Patient currently is . Patient is a 4 para 1.. Patient reports that she has a hard time keeping pregnancies because she usually has miscarriages per patient. On August 12, 2025 patient reports that she had cervical cerclage . Related Data Home Medications ?Medication ?Instructions ?Recorded ?Confirmed ergocalciferol (vitamin D2) 1,250 1,250 mcg PO QWEEK 1 09/06/25 mcg (50,000 unit) capsule (Vitamin D2) vit no.95-ferrous 1 tab PO QDAY 08/10/2508/15 fumarate 28 mg-folic acid 800 mcg tablet () Previous Rx's ?Medication ?Instructions ?Recorded ondansetron 4 mg disintegrating 4 mg PO Q6H PRN nausea and 08/21/25 tablet vomiting #14 tabs Allergies Allergy/AdvReac Type Severity Reaction Status Date / Time latex Allergy Rash Verified 09/06/25 11:39 steristrips Allergy Blister Uncoded 09/06/25 11:39 Review of Systems Review of Systems Systems Reviewed: All systems reviewed, normal except as documented Past Medical History Social History SMOKING STATUS: Never smoker SECOND HAND EXPOSURE: No SUBSTANCE USE: does not use ED Exam Narrative Physical exam: VITAL SIGNS: Reviewed. GENERAL APPEARANCE: Alert and interactive, follows commands, no acute distress HEAD AND FACE: Non-traumatic. ENT: PERRL, conjuctiva pink and clear, eyelid no trauma, Mucous membrane moist. NECK: Supple, nontender, no nuchal rigidity. CHEST: No tenderness, no crepitus, no paradoxical movement, no retractions. LUNGS: breathing even and unlabored HEART: Regular rate, cap refill less than 2 seconds ABDOMEN: Soft, nondistended, no guarding, nontender, no rebound, no masses NEUROLOGICAL: Gross motor function intact sensory function intact, Appropriate for age. MUSCULOSKELETAL: low back nontender, full range of motion. EXTREMITIES: No redness no swelling no skin breakdown on bilateral foot and leg. Distal neurovascular status intact bilateral foot SKIN: Color pink, dry Course Quality Measures none Orders Category Date Time Status US OB >= 14 weeks Fetus Stat Exams 08/21/25 13:00 Completed Beta HCG,Quantitative Stat Lab 08/21/25 13:07 Completed CBC Stat Lab 08/21/25 13:07 Completed Comprehensive Metabolic Panel Stat Lab 08/21/25 13:07 Completed Urinalysis, C/S if Indicated Stat Lab 08/21/25 15:23 Completed Urine Culture Stat Lab 08/21/25 15:32 Completed Acetaminophen Tab [Tylenol ES Tab] Med 08/21/25 13:00 Discontinued 1,000 mg PO X1 ONE Ondansetron Odt [Zofran Odt] Med 08/21/25 13:00 Discontinued 4 mg PO X1 ONE Vital Signs Vital signs: Vital Signs Temperature 98.3 F 08/21/25 12:52 Pulse Rate 93 08/21/25 12:52 Respiratory Rate 16 08/21/25 12:52 Blood Pressure 115/73 08/21/25 12:52 Pulse Oximetry (%) 98 08/21/25 12:52 Oxygen Delivery Method Room Air 08/21/25 12:52 Nausea/Vomiting/Diarrhea MDM Narrative MDM Narrative:: Labs reviewed. White count is 11.9 otherwise CBC unremarkable, BNP unremarkable LFTs within normal limits. Beta-hCG 58,176 UA has several red blood cells. Will send a urine culture. Called , at 1630 and discussed patient case with patient and let her know patient's symptoms but she had some RBCs in her urine and her ultrasound results. Patient okay to go home at this time. patient is to maintain pelvic rest. Patient verbalized understanding. Patient will follow-up with INSURANCE CLAIMS PROCESSOR in 1 to 2 days. Come back to the emergency room symptoms change or worsen. Dragon dictation: Although this document has been carefully reviewed, there may still be some phonetic and other typographical errors. These errors are purely grammatical due to imperfections in the software program and should not be construed in any way to compromise the substance of the patient's medical care during this visit. Patient data External records reviewed:: [facility] previous records Clinical information provided by:: patient Social determinants that could affect healthcare access:: none Patient has the following chronic illnesses:: none How is presenting disease/condition affected by chronic disease/condition?: no chronic disease Evaluation data The following diagnostics were reviewed and interpreted by me:: lab results Lab and/or radiology exams considered but not ordered:: none Interpretation Summary: see note Medications / Prescriptions Medications / Prescriptions considered but not ordered:: none Medication administrations:: Medication Administration History Discontinued Medications Acetaminophen (Acetaminophen 500 Mg Tablet) 1,000 mg PO X1 ONE Stop: 08/21/25 13:01 Last Admin: 08/21/25 13:38 Dose: 1,000 mg Documented By: NATHALY Ondansetron HCl (Ondansetron Odt 4 Mg Tabrap) 4 mg PO X1 ONE; Protocol Stop: 08/21/25 13:01 Last Admin: 08/21/25 13:38 Dose: 4 mg Documented By: NATHALY see [facility] Consultations Consultation(s) initiated? (list below): No Diagnosis Nausea Differential Diagnosis: other (threatened miscarriage, uti, vaginal bleeding ) Most likely diagnosis given after review of the tests above:: threatened miscarriage Admission Indicated Admission indicated?: not indicated Admission Request Was there a request for admission?: No Disposition Plan Disposition Plan: Discharge Discharge Attestation Discharge Attestation: The patient and all family members were given an opportunity to ask questions and understood the discharge instructions. Discharge instructions specifically effects, indications for sooner follow up or return to the emergency department, and the expected course of current diagnosis. Patient condition: Stable Discharge Plan Plan Patient Disposition: HOME (Self Care) Patient condition on transfer: Stable Prescriptions/Referrals Prescriptions/Med Rec: New ondansetron 4 mg tablet,disintegrating 4 mg PO Q6H PRN (Reason: nausea and vomiting) Qty: 14 0RF No Action PNV no.95-ferrous fumarate-FA [] 28 mg iron- 800 mcg tablet 1 tab PO QDAY ergocalciferol (vitamin D2) [Vitamin D2] 1,250 mcg (50,000 unit) capsule 1,250 mcg PO QWEEK Referrals: Jimi Melo PA-C [Primary Care Provider] - In 1 week Problem List Clinical Impression: Hematuria, 15 weeks gestation of , Miscarriage, threatened, early Patient/Caregiver Discharge Instructions Discharge Activity: activity as tolerated Education Materials: Preg 2nd Trimester, ED Possible Miscarriage ... Additional Instructions: Follow up with primary provider in 1-2 days. Come back to ED if symptoms change or worsen Print Language: Malay Stand Alone Forms: Lizzy Award Info., Patient Portal Info Letter PA/DRILL RIG OPERATOR HELPER Supervising Physician PA/DRILL RIG OPERATOR HELPER Supervising Physician: rafiq
[2025-08-21 13:37] LABS: Basophils # (Auto) 0.0 Thou/mm3 (0.0-0.2); Basophils % (Auto) 0 % (0-2.5); Eosinophils # (Auto) 0.0 Thou/mm3 (0.0-0.5); Eosinophils % (Auto) 0 % (0-10); Hematocrit 37.3 % (36.0-46.0); Hemoglobin 12.4 g/dL (12.0-16.0); Immature Granulocytes Auto 0.10 Thou/mm3 (0.00-0.00); Lymphocytes # (Auto) 1.7 Thou/mm3 (1.0-4.8); Lymphocytes % (Auto) 14 % (10-50); Mean Corpuscular HGB Conc 33.2 g/dl (31.0-37.0); Mean Corpuscular Hemoglobin 28.1 pg (25.0-35.0); Mean Corpuscular Volume 84 fL (80-100); Monocytes # (Auto) 0.7 Thou/mm3 (0.0-0.8); Monocytes % (Auto) 6 % (0-12); Neutrophils # (Auto) 9.3 Thou/mm3 (1.8-7.7); Neutrophils % (Auto) 79 % (37-80); Nucleated Red Blood Cell # 0.00 Thou/mm3 (0.00-0.00); Nucleated Red Blood Cell % 0 /100 WBC (0); Platelet Count 227 Thou/mm3 (140-440); RDW Standard Deviation 37.9 fL (36.4-46.3); Red Blood Count 4.42 Miln/mm3 (4.00-5.20); White Blood Count 11.9 Thou/mm3 (3.6-11.0)
[2025-08-21] MEDS: ONDANSETRON ODT 4 MG TABRAP PO (13:38)
[2025-08-21] MEDS: ACETAMINOPHEN 500 MG TABLET 1000 MG PO (13:38)
[2025-08-21 13:55] LABS: Alanine Aminotransferase 14 U/L (10-49); Albumin, Serum 4.7 gm/dL (3.5-5.0); Albumin/Globulin Ratio 1.9 (1.2-2.2); Alkaline Phosphatase 48 U/L (46-116); Anion Gap 9 (7-16); Aspartate Amino Transferase 18 U/L (0-34); BUN/Creatinine Ratio 12 Ratio (12-20); Bilirubin,Total 0.3 mg/dL (0.3-1.2); Blood Urea Nitrogen 6 mg/dL (9-23); Calcium 9.7 mg/dL (8.3-10.6); Calcium (Corrected) 9.7 mg/dL (8.5-10.1); Carbon Dioxide 23.4 mMol/L (20.0-31.0); Chloride 106 mMol/L (98-107); Creatinine (Component) 0.5 mg/dL (0.6-1.3); Estimated Creatinine Clearance 194.9 mL/min (>60); Globulin 2.5 gm/dL (2.3-3.5); Glucose 87 mg/dL (74-106); Osmolality,Calculated 272 (275-295); Potassium 4.3 mMol/L (3.4-5.1); Sodium 138 mMol/L (136-145); Total Protein 7.2 gm/dL (5.7-8.2); eGFR > 60 See Note
[2025-08-21 15:39] LABS: Collection Type, Urine Voided
[2025-08-21 16:03] LABS: Bilirubin,Urine Negative (Negative); Blood,Urine Negative (Negative); Clarity,Urine Clear (Clear/Hazy); Color,Urine Yellow (Lt Yel-Yel); Culture Indicated,Urine Not Indicated; Glucose, Urine Negative (Negative); Ketones,Urine 2+ (Negative); Leukocyte Esterase,Urine Negative (Negative); Nitrite,Urine Negative (Negative); PH,Urine 7.0 (5.0-7.0); Protein,Urine Trace (Neg - Trace); RBC,Urine 11 /hpf (0-3); Specific Gravity,Urine 1.026 (1.001-1.035); Squamous Epithelial Cell,Urine 1 /hpf (0-5); Urobilinogen,Urine Negative mg/dL (0.0-1.0); WBC,Urine 1 /hpf (0-5)
== END 2025-08-21 16:43 | disposition home or self-care (01) ==
PROVIDERS: Emergency Provider Nurse Practitioner Family; PCP Physician Assistant
DX: O21.9 Vomiting of pregnancy, unspecified (principal); Z3A.15 15 weeks gestation of pregnancy; R42 Dizziness and giddiness; R51.9 Headache, unspecified; R55 Syncope and collapse
CPT/HCPCS: 36415; 76805; 80053; 81001; 84702; 85025; 87086; 99283; Q0162; A9270

== ENCOUNTER 2025-09-06 11:26 | Outpatient (AMB) | payer OTHER, BC, SELFPAY ==
[2025-09-06 11:39] VITALS: BP 115/74; PULSE 93; RESP 18; TEMP 36.6; O2SAT 98; BMI 30.8
--- NOTE | 2025-09-06 11:39 | OBCLNT_ITS ---
Vital Signs 09/06/25 11:39 Height 1.73 m Height Method Stated Weight 92.306 kg Weight Measurement Method Standing Scale BMI 30.8 BP 115/74 Blood Pressure Source Automatic Cuff Blood Pressure Location Right Upper Arm Position Sitting Respiration 18 Pulse 93 Pulse Source Monitor Temp 97.8 F Temp Source Temporal Artery Scan Pulse Oximetry (%) 98 Oxygen Delivery Method Room Air Allergies/Home Meds Allergies & Medications Allergies latex Allergy (Verified 10/04/25 10:36) Rash steristrips Allergy (Uncoded 10/04/25 10:36) Blister Medication Reconciliation ergocalciferol (vitamin D2) 1,250 mcg (50,000 unit) capsule (Vitamin D2) 1,250 mcg PO QWEEK 08/10/25 [History Confirmed 10/04/25] vit no.95-ferrous fumarate 28 mg-folic acid 800 mcg tablet () 1 tab PO QDAY 08/10/25 [History Confirmed 10/04/25] ondansetron 4 mg disintegrating tablet 4 mg PO Q6H PRN nausea and vomiting #14 tabs 08/21/25 [Rx Confirmed 10/04/25] Immunizations Immunizations Flu Vaccine in the Last 12 Months: No Flu Vaccine Exclusion Criteria: No Exclusion Criteria Care OB Visit Log OB Flowsheet Initial Weight: Not Recorded Date -?-?-?-?-?-?-?-?-?-?-?-?- EGA Weight BP Alb Glu CTX Pres Fundal ht FHR Mov Dilation Station Effacement Hx Notes Visit Note 06/25/25 -?-?-?-?-?-?-?-?-?-?-?-?- 6w 3d 89.358 kg 126/72 absent - Gail Nicolas presents for follow-up of early . - She was previously seen on 06-11-2025 a nd 06-15-2025 for monitoring. - Patient reports pain related to a cyst but denies any vaginal bleeding, discharge, or cramping. - She denies any uterine bleeding or other complaints related to he r . Plan - Draw quantitative HCG today - Hold ultrasound orders (transabdominal and transvaginal) until HCG results are reviewed - Provider will call patient Saturday morn ing with HCG results and determine timing for ultrasound based on HCG trend - No follow-up appointment scheduled at this time 07/07/25 -?-?-?-?-?-?-?-?-?-?-?-?- 8w 1d 90.492 kg 124/82 absent Gail Nicolas, a at 8w1d by LMP, presents with pelvic pressure described as a sensation of the cervix opening, worsened by showering and sitting. 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 Her OB history includes a 17-week loss in 2019 with vaginal pressure and spotting, followed by a successful cerclage-managed complicated by severe preeclampsia. Current transvaginal ultrasound shows viable IUP at 8w0d with FHR 180 bpm. Labs demonstrate appropriate serial hCG rise. Viable IUP at 8w1d. Given history of cervical insufficiency, patient qualifies for history-indicated cerclage. Stat referral to [facility] (Dr. Diallo) for TVUS and cervix length assessment; plan cerclage at 12?13 weeks. Strict bedrest advised until evaluation. 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 Continue Gas- X PRN. Given prior severe preeclampsia, recommend early [facility] involvement for BP surveillance. Labs ordered, NIPT to be scheduled after 9 weeks. Follow-up in 2 weeks or sooner PRN. 07/14/25 -?-?-?-?-?-?-?-?-?-?-?-?- 9w 1d 88.054 kg 115/74 absent Denies CLINE, VC, and epigastric pain. - Gail Nicolas is a female at 9 weeks 5 days gestation with a history of cerclage in previous . - She reports a history of 4 miscarriage s prior to her daughter. - She describes her current an d her daughter as miracle babies. - She states she previously thought she could not have children. - Patient expresses desire to have another child after her daughter . - Schedule for August 17 at 10:30 for a doctor appointment - Complete pending tests/procedures befo re next appointment - Has appt with Dr Diallo ([facility]) 08/06/25 -?-?-?-?-?-?-?-?-?-?-?-?- 12w 3d 89.074 kg 120/78 absent - Gailmadalyn Nicolas is presenting for a visit at 12 weeks and 3 days gestation with a history of incompetent cervix, and idiopathic intracranial hypertension. - She has a history of prior 17-week pre gnancy loss and a subsequent successful with cerclage placement that resulted in delivery at 37 weeks. - Patient underwent a first trimester ul trasound at [facility] on August 03, 2025. - She has idiopathic intracranial hypert ension diagnosed at age 31 and is followed by neuro-ophthalmology every 3 months. - She was previously on Diamox and Lasix for her intracranial hypertension, which were discontinued at the beginning of . - Patient denies pre-eclampsia, noting t hat this was inaccurately mentioned in her records and should be corrected. Plan - History-indicated cerclage placement p lanned based on past successful outcome - Stat referral submitted today with aut horization expected Saturday - Procedure scheduled for Saturday or Sat under general anesthesia - Ultrasound before and after cerclage p rocedure to assess placement - Anatomy survey and MFM follow-up at 20 weeks - Cerclage removal planned at 36 to 37 w eeks - Patient to remain on leave, possible r eturn after 20 weeks until 30 weeks pending further evaluation - Correct medical records to reflect idi opathic intracranial hypertension rather than pre-eclampsia 09/06/25 -?-?-?-?-?-?-?-?-?-?-?-?- 16w 6d 92.306 kg 115/74 absent unknown 165 history of incompetent cervix and recurrent loss. - She is 3 weeks status post cervical ce rclage placement performed on 08-12-2025. - Patient reports cardiac symptoms inclu ding episodes of passing out and elevated heart rate. - These episodes have been really sca ry for the patient - Similar symptoms occurred during her previous but were less frequent (only 2 times) and consisted mainly of feeling lightheaded - Current symptoms are more severe with heart rate elevation - No identifiable triggers noted - Patient has attempted lifestyle guanako fications including cutting down on caffeine, soda, and sweets - Plans to get a water dispenser to st ay better hydrated - Notes that eating heavier, carb-heav y meals may worsen symptoms - Patient reports new onset pelvic press ure starting last night. - She left a message requesting a cardio logy referral, which has been sent as a stat referral to Dr. Reed Nelson. - Patient has had previous cardiac rafael p including an echocardiogram but has not had a stress test in years. - She is scheduled to return to work on September 13. - Patient reports feeling fine -gaona, with her main concern being the cardiac symptoms. - Stat cardiol ogy referral to Dr. Reed Nelson has been sent for cardiac symptoms - Patient to call cardiology office to nicky kam up on referral appointment - Minimize time on feet and stay horizon gunner as much as possible until 26-28 weeks gestation - Return to work on September 13 approve d - Follow up in 4 weeks - Patient may text provider with concern s 10/04/25 -?-?-?-?-?-?-?-?-?-?-?-?- 20w 6d 95.708 kg 122/77 absent 145 - Gailmadalyn Nicolas is a 4 para 1 patient at 20 weeks and 6 days gestation presenting for routine care. - She has a cervical cerclage in place. - Recent [facility] ultrasound performed on showed: - Single living fetus with gestational age of 20 weeks and 3 days corresponding to LMP due date - Accelerated growth with LGA fetus at 92nd percentile (AFW 422 grams) - AC at 89th percentile - Normal ALEXNADRA and anatomic evaluation w ithin normal limits - Placenta posterior left lateral with no previa - Cervix measuring 3.6 cm with no funn eling - Patient reports doing well and continu es working. - She expresses interest in attempting v aginal after () and asks about delivery options. - Patient has history of previous myra an section performed under general anesthesia due to physician concerns, which resulted in horrible headaches and no recall of the experience. - She reports bad anxiety but wants to e xperience hearing the first cry and having her present. - Patient asks about timing of non-stres s tests (NSTs) for this . - She reports the baby is very active. - Date: 09/30/2025 - [facility] ultrasound: Single living fetus, gestational age 20 weeks 3 days (corresponds to LMP due date), composite age 20 weeks 6 days, estimated weight 422 grams (92nd percentile), abdominal circumference 89th percentile, amniotic fluid index normal, anatomic evaluation within normal limits, placenta posterior left lateral with no previa, cervical length 3.6 cm with no funneling, presentation vague DUONG Calculator Estimated Delivery Date Method Current WG Current Estimate 02/15/26 Ultrasound #1 21w 2d Notes Visit Date: 10/04/25 Last Updated by: Jose Ortiz MD - Date: 09/30/2025 - [facility] ultrasound: Single living fetus, gestational age 20 weeks 3 days (corresponds to LMP due date), composite age 20 weeks 6 days, estimated weight 422 grams (92nd percentile), abdominal circumference 89th percentile, amniotic fluid index normal, anatomic evaluation within normal limits, placenta posterior left lateral with no previa, cervical length 3.6 cm with no funneling, presentation vague Visit Date: 09/06/25 Last Updated by: Jose Ortiz MD - Obstetric ultrasound (current visit at 16 weeks 6 days gestation): - heart rate present, baby active - Placenta appears normal - Cervix long and closed with suture in place - No abnormalities noted Visit Date: 08/06/25 Last Updated by: Jose Ortiz MD - Date: 08/03/2025 - First trimester ultrasound at [facility]: Early anatomy survey within normal limits with limited study due to early gestational age. Cervical length 2.2 cm. Uterus normal, right ovary not visualized, left ovary not visualized, cul de sac no fluid noted. Both adnexa appeared unremarkable. Visit Date: 06/25/25 Last Updated by: Jose Ortiz MD Laboratory, Imaging, and Diagnostic Test Results - Date: 06/11/2025 - Serum hC - Date: 06/15/2025 - Serum hC - Date: 06/17/2025 - Transvaginal ultrasound: Empty intrauterine sac corresponding to 6 weeks and 0 days - Transabdominal ultrasound: Sac corresponding to 6 weeks and 2 days, no pole, no cardiac activity Office Procedures OBC Clinic LOC & Office Proc's Nursing/Assessment Patient Status: Established Patient OB Clinic Nursing Assessment: Medication Reconciliation, Update PMH in EMR and Vital Signs OB Clinic Coordination of Care: Complex Care and Chronic Disease 1-5, Education Complex Pt/Fam, Consent,records obtained, informed consent, Lab and Imaging orders, Results/Orders obtained and Staff clarify orders Special Needs: Heart tones Established Patient Charge Established Patient Point Assignment: 140 Established Patient Point Charge: EP Level 4 (120-155) Assessment & Plan Diagnosis / Problem List (1) Maternal care for cervical incompetence, unspecified trimester: Status: Acute Plan Problem List - Incompetent cervix - Recurrent loss - Cardiac arrhythmia Assessment Patient presents at 16 weeks 6 days gestation with history of incompetent cervix and recurrent loss, currently 3 weeks status post cervical cerclage placement performed on 08-12-2025. Patient is experiencing cardiac symptoms including elevated heart rate and episodes of passing out, which have worsened compared to previous when she only experienced occasional lighthead edness. She reports pelvic pressure which began last night. Current ultrasound demonstrates viability with active fetus, normal placental appearance, and cervix appearing long and closed with cervical cerclage in place. Patient has been referred to cardiology for evaluation of cardiac symptoms. Plan - Stat cardiology referral to Dr. Reed Nelson has been sent for cardiac symptoms - Patient to call cardiology office to follow up on referral appointment - Minimize time on feet and stay horizontal as much as possible until 26-28 weeks gestation - Return to work on September 13 approved - Follow up in 4 weeks - Patient may text provider with concerns 1. Progress Reviewed gestational age at 16 weeks 6 days, growth appears appropriate, and heart rate was noted. Patient has history of incompetent cervix and recurrent loss with cervical cerclage placement on 08-12-2025. Cervix appears nice and long on ultrasound. Baby is super active. Planned return visit in 4 weeks. 2. Instructed patient to monitor movements and report decreases immediately. 3. Testing Counseled on routine third-trimester labs per guidelines. Discussed potential need for ultrasound or monitoring based on risk factors. 4. Preeclampsia Precaution Educated on preeclampsia signs: severe headache, vision changes, right upper quadrant pain, sudden swelling. Advised urgent reporting of symptoms and discussed blood pressure monitoring if high risk. 5. Labor Precautions Patient experiencing some pelvic pressure which is expected given low-lying baby and cervical cerclage. Advised to minimize time on feet and stay horizontal as much as possible until 26-28 weeks when baby gets large enough that pelvic outlet will support the weight rather than soft tissues. Instructed to seek immediate care for concerning symptoms. 6. Lifestyle and Delivery Preparation Patient attempting to cut down on caffeine, soda, and sweets. Noted possible carb sensitivity. Advised on hydration. Patient cleared to return to work September 13. Reinforced importance of activity modification given cervical cerclage. 7. Psychosocial Support Patient expressing anxiety about cardiac symptoms and previous concerning comments from other providers. Reassured that her situation is unique and complex, requiring specialized care from MFM and OB providers. Provided direct contact information for urgent concerns. Stat cardiology referral sent to Dr. Reed Nelson for cardiac evaluation.
== END 2025-09-06 11:47 | disposition home or self-care (01) ==
LOC: HODSOBC 11:26
PROVIDERS: PCP Physician Assistant; Referring Provider Physician Assistant; Supervising Provider Obstetrics & Gynecology; Visit Provider Obstetrics & Gynecology
DX: O09.892 Supervision of other high risk pregnancies, second trimester (principal); O34.32 Maternal care for cervical incompetence, second trimester; O09.292 Supervision of pregnancy with other poor reproductive or obstetric history, second trimester; O26.22 Pregnancy care for patient with recurrent pregnancy loss, second trimester; O99.412 Diseases of the circulatory system complicating pregnancy, second trimester; I49.9 Cardiac arrhythmia, unspecified; Z3A.16 16 weeks gestation of pregnancy; Z91.040 Latex allergy status; Z91.048 Other nonmedicinal substance allergy status
CPT/HCPCS: 99214; G0463

== ENCOUNTER 2025-10-04 10:32 | Outpatient (AMB) | payer OTHER, BC, SELFPAY ==
--- NOTE | 2025-10-04 10:36 | OBCLNT_ITS ---
Vital Signs 10/04/25 10:46 Height 1.73 m Height Method Stated Weight 95.708 kg Weight Measurement Method Standing Scale BMI 31.9 BP 122/77 Blood Pressure Source Automatic Cuff Blood Pressure Location Left Upper Arm Position Sitting Respiration 18 Pulse 109 H Pulse Source Monitor Temp 97.2 F Temp Source Oral Pulse Oximetry (%) 98 Oxygen Delivery Method Room Air Allergies/Home Meds Allergies & Medications Allergies latex Allergy (Verified 10/04/25 10:36) Rash steristrips Allergy (Uncoded 10/04/25 10:36) Blister Medication Reconciliation ergocalciferol (vitamin D2) 1,250 mcg (50,000 unit) capsule (Vitamin D2) 1,250 mcg PO QWEEK 08/10/25 [History Confirmed 10/04/25] vit no.95-ferrous fumarate 28 mg-folic acid 800 mcg tablet () 1 tab PO QDAY 08/10/25 [History Confirmed 10/04/25] ondansetron 4 mg disintegrating tablet 4 mg PO Q6H PRN nausea and vomiting #14 tabs 08/21/25 [Rx Confirmed 10/04/25] Immunizations Immunizations Flu Vaccine in the Last 12 Months: No Flu Vaccine Exclusion Criteria: No Exclusion Criteria Care OB Visit Log OB Flowsheet Initial Weight: Not Recorded Date -?-?-?-?-?-?--?-?-?-?-?-?- EGA Weight BP Alb Glu CTX Pres Fundal ht FHR Mov Dilation Station Effacement Hx Notes Visit Note 06/25/25 -?-?-?-?-?-?-?-?-?-?-?-?- 6w 3d 89.358 kg 126/72 absent - Gail Nicolas presents for follow-up of early . - She was previously seen on 06-11-2025 a nd 06-15-2025 for monitoring. - Patient reports pain related to a cyst but denies any vaginal bleeding, discharge, or cramping. - She denies any uterine bleeding or other complaints related to he r . Plan - Draw quantitative HCG today - Hold ultrasound orders (transabdominal and transvaginal) until HCG results are reviewed - Provider will call patient Saturday morn ing with HCG results and determine timing for ultrasound based on HCG trend - No follow-up appointment scheduled at this time 07/07/25 -?-?-?-?-?-?-?-?-?-?-?-?- 8w 1d 90.492 kg 124/82 absent Gail Nicolas, a at 8w1d by LMP, presents with pelvic pressure described as a sensation of the cervix opening, worsened by showering and sitting. 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 Her OB history includes a 17-week loss in 2019 with vaginal pressure and spotting, followed by a successful cerclage-managed complicated by severe preeclampsia. Curre nt transvaginal ultrasound shows viable IUP at 8w0d with FHR 180 bpm. Labs demonstrate appropriate serial hCG rise. Viable IUP at 8w1d. Given history of cervical insufficiency, patient qualifies for history-indicated cerclage. Stat referral to [facility] (Dr. Diallo) for TVUS and cervix length assessment; plan cerclage at 12?13 weeks. Strict bedrest advised until evaluation. 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 Continue Gas- X PRN. Given prior severe preeclampsia, recommend early MFM involvement for BP surveillance. Labs ordered, NIPT to be scheduled after 9 weeks. Follow-up in 2 weeks or sooner PRN. 07/14/25 -?-?-?-?-?-?-?-?-?-?-?-?- 9w 1d 88.054 kg 115/74 absent Denies CLINE, VC, and epigastric pain. - Gail Nicolas is a female at 9 weeks 5 days gestation with a history of cerclage in previous . - She reports a history of 4 miscarriage s prior to her daughter. - She describes her current an d her daughter as miracle babies. - She states she previously thought she could not have children. - Patient expresses desire to have another child after her daughter . - Schedule for August 17 at 10:30 for a doctor appointment - Complete pending tests/procedures befo re next appointment - Has appt with Dr Diallo ([facility]) 08/06/25 -?-?-?-?-?-?-?-?-?-?--?-?- 12w 3d 89.074 kg 120/78 absent - Gail Nicolas is presenting for a visit at 12 weeks and 3 days gestation with a history of incompetent cervix, and idiopathic intracranial hypertension. - She has a history of prior 17-week pre gnancy loss and a subsequent successful with cerclage placement that resulted in delivery at 37 weeks. - Patient underwent a first trimester ul trasound at [facility] on August 03, 2025. - She has idiopathic intracranial hypert ension diagnosed at age 31 and is follow ed by neuro-ophthalmology every 3 months. - She was previously on Diamox and Lasix for her intracranial hypertension, which were discontinued at the beginning of . - Patient denies pre-eclampsia, noting t hat this was inaccurately mentioned in her records and should be corrected. Plan - History-indicated cerclage placement p lanned based on past successful outcome - Stat referral submitted today with aut horization expected Saturday - Procedure scheduled for Saturday or Sat under general anesthesia - Ultrasound before and after cerclage p rocedure to assess placement - Anatomy survey and MFM follow-up at 20 weeks - Cerclage removal planned at 36 to 37 w eeks - Patient to remain on leave, possible r eturn after 20 weeks until 30 weeks pending further evaluation - Correct medical records to reflect idi opathic intracranial hypertension rather than pre-eclampsia 10/04/25 -?-?-?-?-?-?-?-?-?-?-?-?- 20w 6d 95.708 kg 122/77 absent 145 - Gail Nicolas is a 4 para 1 patient at 20 weeks and 6 days gestation presenting for routine care. - She has a cervical cerclage in place. - Recent MFM ultrasound performed on showed: - Single living fetus with gestational age of 20 weeks and 3 days corresponding to LMP due date - Accelerated growth with LGA fetus at 92nd percentile (AFW 422 grams) - AC at 89th percentile - Normal ALEXANDRA and anatomic evaluation w ithin normal limits - Placenta posterior left lateral with no previa - Cervix measuring 3.6 cm with no funn eling - Patient reports doing well and continu es working. - She expresses interest in attempting v aginal after () and asks about delivery options. - Patient has history of previous myra an section performed under general anesthesia due to physician concerns, which resulted in horrible headaches and no recall of the experience. - She reports bad anxiety but wants to e xperience hearing the first cry and having her present. - Patient asks about timing of non-stres s tests (NSTs) for this . - She reports the baby is very active. - Date: 09/30/2025 - [facility] ultrasound: Single living fetus, gestational age 20 weeks 3 days (corresponds to LMP due date), composite age 20 weeks 6 days, estimated weight 422 grams (92nd percentile), abdominal circumference 89th percentile, amniotic fluid index normal, anatomic evaluation within normal limits, placenta posterior left lateral with no previa, cervical length 3.6 cm with no funneling, presentation vague DUONG Calculator Estimated Delivery Date Method Current WG Current Estimate 02/15/26 Ultrasound #1 21w 0d Notes Visit Date: 10/04/25 Last Updated by: Jose Ortiz MD - Date: 09/30/2025 - [facility] ultrasound: Single living fetus, gestational age 20 weeks 3 days (corresponds to LMP due date), composite age 20 weeks 6 days, estimated weight 422 grams (92nd percentile), abdominal circumference 89th percentile, amniotic fluid index normal, anatomic evaluation within normal limits, placenta posterior left lateral with no previa, cervical length 3.6 cm with no funneling, presentation vague Visit Date: 08/06/25 Last Updated by: Jose Ortiz MD - Date: 08/03/2025 - First trimester ultrasound at [facility]: Early anatomy survey within normal limits with limited study due to early gestational age. Cervical length 2.2 cm. Uterus normal, right ovary not visualized, left ovary not visualized, cul de sac no fluid noted. Both adnexa appeared unremarkable. Visit Date: 06/25/25 Last Updated by: Jose Ortiz MD Laboratory, Imaging, and Diagnostic Test Results - Date: 06/11/2025 - Serum hC - Date: 06/15/2025 - Serum hC - Date: 06/17/2025 - Transvaginal ultrasound: Empty intrauterine sac corresponding to 6 weeks and 0 days - Transabdominal ultrasound: Sac corresponding to 6 weeks and 2 days, no pole, no cardiac activity Office Procedures OBC Clinic LOC & Office Proc's Nursing/Assessment Patient Status: Established Patient OB Clinic Nursing Assessment: Medication Reconciliation, Update PMH in EMR and Vital Signs OB Clinic Coordination of Care: Complex Care and Chronic Disease 1-5, Consent,records obtained, informed consent, Education Simp Pt/Fam, Lab and Imaging orders, Results/Orders obtained and Staff clarify orders Special Needs: Heart tones Established Patient Charge Established Patient Point Assignment: 135 Established Patient Point Charge: EP Level 4 (120-155) Assessment & Plan Diagnosis / Problem List (1) Cervical insufficiency during in first trimester, antepartum: Status: Acute (2) Palpitations with regular cardiac rhythm: Status: Acute (3) Maternal care for low transverse scar from previous delivery: Status: Acute Plan Problem List - , 20 weeks 6 days gestation - History of labor - Cervical cerclage in place - Large for gestational age fetus - History of section Assessment 4 para 1 at 20 weeks 6 days gestation with cervical cerclage in place. Recent [facility] ultrasound on 09/30/2025 shows single living fetus with gestational age consistent with LMP dating at 20 weeks 3 days, demonstrating accelerated growth with LGA fetus at 92nd percentile (estimated weight 422 grams). Cervical length measures 3.6 cm with no funneling and cerclage holding well. Placenta is posterior left lateral with no previa. Anatomic evaluation and amniotic fluid index are within normal limits. Patient has history of labor and previous delivery with general anesthesia. heart rate is 151 bpm with active movement noted. Plan - Continue cervical cerclage in place until delivery - Plan for section at 39 weeks gestation - Coordinate with Dr. Mendieta for spinal anesthesia administration during delivery - Schedule section at facility where Dr. Mendieta is available ([facility]) - Remove cervical cerclage in operating room during section while spinal anesthesia is active - Begin non-stress tests (NSTs) starting at 30 weeks gestation, twice weekly on Mondays - Perform glucose tolerance test at 24 weeks gestation (4 weeks from current visit) - Continue work until 28 weeks gestation, then initiate work restrictions - Follow up in 4 weeks for routine care 1. Progress Reviewed gestational age at 20 weeks 6 days, growth showing LGA fetus at 92nd percentile with estimated weight of 422 grams, and heart rate of 151 bpm which is normal. Planned frequent visits with next appointment in 4 weeks. 2. Instructed patient to monitor movements and report decreases immediately. 3. Testing Counseled on routine third-trimester labs per guidelines including glucose tolerance test to be performed at 24 weeks. Discussed potential need for NSTs starting at 30 weeks based on risk factors including history of labor and cervical cerclage. 4. Preeclampsia Precaution Educated on preeclampsia signs: severe headache, vision changes, right upper quadrant pain, sudden swelling. Advised urgent reporting of symptoms and discussed blood pressure monitoring if high risk. 5. Labor Precautions Reviewed labor signs: regular contractions, pelvic pressure, back pain, bleeding, or fluid leakage. Instructed to seek immediate care for these symptoms. Patient has cervical cer clage in place with cervical length of 3.6 cm. 6. Lifestyle and Delivery Preparation Reinforced vitamins, nutrition, and safe activity with recommendation to work until 28 weeks then modify activity. Discussed plan including planned section at 39 weeks with spinal anesthesia, pain management options, and cerclage removal during delivery. Advised on labor preparation and expectations. 7. Psychosocial Support Assessed emotional well-being noting patient's anxiety regarding delivery and previous negative experience with general anesthesia. Offered resources in cluding consultation with anesthesiologist Dr. Mnedieta for delivery planning and mental health support.
[2025-10-04 10:46] VITALS: BP 122/77; PULSE 109; RESP 18; TEMP 36.2; O2SAT 98; BMI 31.9
== END 2025-10-04 11:06 | disposition home or self-care (01) ==
PROVIDERS: Supervising Provider Obstetrics & Gynecology; Visit Provider Obstetrics & Gynecology
DX: O09.292 Supervision of pregnancy with other poor reproductive or obstetric history, second trimester (principal); O34.211 Maternal care for low transverse scar from previous cesarean delivery; O09.892 Supervision of other high risk pregnancies, second trimester; O34.32 Maternal care for cervical incompetence, second trimester; O99.891 Other specified diseases and conditions complicating pregnancy; O36.62X0 Maternal care for excessive fetal growth, second trimester, not applicable or unspecified; R00.2 Palpitations; O09.212 Supervision of pregnancy with history of pre-term labor, second trimester; Z3A.20 20 weeks gestation of pregnancy; Z91.040 Latex allergy status; Z91.048 Other nonmedicinal substance allergy status
CPT/HCPCS: 99214; G0463

== ENCOUNTER 2025-10-11 15:22 | Emergency (ER) | payer OTHER, BC, SELFPAY ==
[2025-10-11 15:32] VITALS: BP 120/77; PULSE 100; RESP 16; TEMP 37.2; O2SAT 99; BMI 31.1
--- NOTE | 2025-10-11 15:41 | XR_ITS ---
Examination: Complete OB ultrasound greater than 14 weeks Date and time of exam: October 11, 2025, 1612 hours INDICATIONS: Nausea cardiac palpitations today, 22-week by history Findings: Viable intrauterine single fetus with single amniotic sac presentation cephalic spine maternal left Cardiac motion 131 bpm Placenta posterior grade 2 Medical cord insertion 3 vessel seen Amniotic fluid index 15.5 cm Cervix 3.6 cm Ovaries obscured by bowel gas. Composite estimated gestational age based on BPD, head circumference, abdominal circumference, femur length is 23 weeks 2 days Estimated weight 596 g. Survey of intracranial anatomy, spinal anatomy, abdominal anatomy, four-chamber heart performed with no abnormalities identified. Impression: Five-point uterine gestation cephalic presentation.
--- NOTE | 2025-10-11 15:41 | EKG_ITS ---
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
--- NOTE | 2025-10-11 15:42 | PD.EDRME ---
Rapid Medical Screening Exam RME Arrival date/time: 10/11/25 15:22 30-year-old female with no known medical history presents to the emergency room with a chief complaint of palpitations x 2 days. Patient is currently 22 weeks . I have greeted and performed a focused initial assessment of this patient. A comprehensive ED assessment and evaluation of the patient, analysis of all test results, and completion of the medical decision making process will be conducted by additional ED providers. Chief Complaint: Arrhythmia/Palpitations Time Seen by Provider: 10/11/25 15:32 Vital signs: Vital Signs Temperature 98.9 F 10/11/25 15:32 Pulse Rate 100 10/11/25 15:32 Respiratory Rate 16 10/11/25 15:32 Blood Pressure 120/77 10/11/25 15:32 Pulse Oximetry (%) 99 10/11/25 15:32 Oxygen Delivery Method Room Air 10/11/25 15:32 Vital signs reviewed by provider: Yes Exam: Clear bilateral lung sounds Strong and regular rhythm Clinical Impression: Palpitations
[2025-10-11 16:13] LABS: Basophils # (Auto) 0.0 Thou/mm3 (0.0-0.2); Basophils % (Auto) 0 % (0-2.5); Eosinophils # (Auto) 0.1 Thou/mm3 (0.0-0.5); Eosinophils % (Auto) 1 % (0-10); Hematocrit 34.1 % (36.0-46.0); Hemoglobin 11.3 g/dL (12.0-16.0); Immature Granulocytes Auto 0.14 Thou/mm3 (0.00-0.00); Lymphocytes # (Auto) 1.4 Thou/mm3 (1.0-4.8); Lymphocytes % (Auto) 17 % (10-50); Mean Corpuscular HGB Conc 33.1 g/dl (31.0-37.0); Mean Corpuscular Hemoglobin 28.8 pg (25.0-35.0); Mean Corpuscular Volume 87 fL (80-100); Monocytes # (Auto) 0.9 Thou/mm3 (0.0-0.8); Monocytes % (Auto) 11 % (0-12); Neutrophils # (Auto) 5.9 Thou/mm3 (1.8-7.7); Neutrophils % (Auto) 69 % (37-80); Nucleated Red Blood Cell # 0.00 Thou/mm3 (0.00-0.00); Nucleated Red Blood Cell % 0 /100 WBC (0); Platelet Count 192 Thou/mm3 (140-440); RDW Standard Deviation 40.3 fL (36.4-46.3); Red Blood Count 3.93 Miln/mm3 (4.00-5.20); White Blood Count 8.5 Thou/mm3 (3.6-11.0)
[2025-10-11 16:28] LABS: Alanine Aminotransferase 11 U/L (10-49); Albumin, Serum 4.1 gm/dL (3.5-5.0); Albumin/Globulin Ratio 1.4 (1.2-2.2); Alkaline Phosphatase 61 U/L (46-116); Anion Gap 8 (7-16); Aspartate Amino Transferase 18 U/L (0-34); BUN/Creatinine Ratio 13 Ratio (12-20); Bilirubin,Total 0.2 mg/dL (0.3-1.2); Blood Urea Nitrogen 5 mg/dL (9-23); Calcium 9.1 mg/dL (8.3-10.6); Calcium (Corrected) 9.1 mg/dL (8.5-10.1); Carbon Dioxide 23.9 mMol/L (20.0-31.0); Chloride 106 mMol/L (98-107); Creatinine (Component) 0.4 mg/dL (0.6-1.3); Estimated Creatinine Clearance 249.7 mL/min (>60); Globulin 3.0 gm/dL (2.3-3.5); Glucose 91 mg/dL (74-106); Magnesium 1.8 mg/dL (1.6-2.6); Osmolality,Calculated 272 (275-295); Potassium 4.1 mMol/L (3.4-5.1); Sodium 138 mMol/L (136-145); Total Protein 7.1 gm/dL (5.7-8.2); Troponin I < 0.002 ng/mL (0.0-0.045); eGFR > 60 See Note
[2025-10-11 16:38] LABS: B-Type Natriuretic Peptide < 20 pg/mL (0-100)
[2025-10-11 16:56] LABS: Collection Type, Urine Clean Catch; RBC,Urine 0 /hpf (0-3); Squamous Epithelial Cell,Urine 0 /hpf (0-5); WBC,Urine 0 /hpf (0-5)
[2025-10-11 17:01] LABS: Bacteria,Urine 1+; Bilirubin,Urine Negative (Negative); Blood,Urine Negative (Negative); Clarity,Urine Clear (Clear/Hazy); Color,Urine Colorless (Lt Yel-Yel); Glucose, Urine Negative (Negative); Ketones,Urine Negative (Negative); Leukocyte Esterase,Urine Negative (Negative); Nitrite,Urine Negative (Negative); PH,Urine 7.0 (5.0-7.0); Protein,Urine Negative (Neg - Trace); Specific Gravity,Urine 1.007 (1.001-1.035); Urobilinogen,Urine Negative mg/dL (0.0-1.0)
[2025-10-11 17:02] LABS: Culture Indicated,Urine Yes
--- NOTE | 2025-10-11 20:17 | PD.EDARRY ---
ED Arrhythmia Palp. RME/HPI General Chief Complaint: Arrhythmia/Palpitations Stated Complaint: TACHYCARDIA, NAUCEOUS, TIRED, PREG 22WKS Time Seen by Provider: 10/11/25 15:32 Arrival date/time: 10/11/25 15:22 RME / HPI RME / HPI narrative: 10/11/25 15:22 30-year-old female with no known medical history presents to the emergency room with a chief complaint of palpitations x 2 days. Patient is currently 22 weeks . I have greeted and performed a focused initial assessment of this patient. A comprehensive ED assessment and evaluation of the patient, analysis of all test results, and completion of the medical decision making process will be conducted by additional ED providers. Dr. Hdez?s Main ED Evaluation: 30yo female presents to the ED for a chief complaint of intermittent palpitations. Patient states she's been having episodes of palpitations and near syncope ever since she had a cervical cerclage on 08/12/25. Patient states today, she had an episode of palpitations where her heart rate reached up to 140 and would go back down to the 70s after she laid down. Patient reports associated nausea and general malaise when these episodes occur. Denies any vomiting or any other associated symptoms. Patient recently had a holter monitor placed on 10/05/25 and had it removed on 10/08/25, but states her symptoms were not as severe until 10/09/25. Related Data Home Medications ?Medication ?Instructions ?Recorded ?Confirmed ergocalciferol (vitamin D2) 1,250 1,250 mcg PO QWEEK 08/10/25 10/04/25 mcg (50,000 unit) capsule (Vitamin D2) vit no.95-ferrous 1 tab PO QDAY 08/10/25 10/04/25 fumarate 28 mg-folic acid 800 mcg tablet () Previous Rx's ?Medication ?Instructions ?Recorded ondansetron 4 mg disintegrating 4 mg PO Q6H PRN nausea and 08/21/25 tablet vomiting #14 tabs Allergies Allergy/AdvReac Type Severity Reaction Status Date / Time latex Allergy Rash Verified 10/11/25 15:25 steristrips Allergy Blister Uncoded 10/11/25 15:25 Review of Systems Review of Systems Systems Reviewed: All systems reviewed, normal except as documented Past Medical History Past Medical History NEUROLOGIC: Positive Neurological Disorders (Intracranial pressure, Cash Johnson neurologist) and Migraine; Negative Seizures CARDIAC: Negative Cardiac Disorders (Palpitations, syncope more frequently during , Sterling Phan cardio) or Congestive Heart Failure RESPIRATORY: Positive Asthma; Negative Chronic Obstructive Pulmonary Disease (COPD) GASTROINTESTINAL: Negative Gastrointestinal Disorders GENITOURINARY: Negative Genitourinary Disorders or Renal Disease REPRODUCTIVE: Positive Previous Pregnancies MUSCULOSKELETAL: Negative Musculoskeletal Disorders ENDOCRINE: Negative Endocrine Disorders, Diabetes Mellitus Type 1 or Diabetes Mellitus Type 2 HEMATOLOGIC: Negative Blood Disorders PSYCHO/SOCIAL: Positive Depression (stop the meds) OTHER HISTORY: Positive Hospitalization, Blood Transfusions and Anesthesia Reactions (SVT); Negative Autoimmune Disease, Shingles, Blood Transfusion Reaction, Clostridium Difficile or Cancer Family History FAMILY HISTORY: Positive Family Surgery; Negative Family Psychiatric Problems, Family Respiratory Disorders, Family Cardiac Disorders, Family Gastrointestinal Problems, Family Cancer or Family Anesthesia Reaction Surgical History SURGICAL: Positive Section (x1) Social History SMOKING STATUS: Never smoker SECOND HAND EXPOSURE: No SUBSTANCE USE: does not use ED Exam Narrative Physical exam: Generally patient is alert and in no obvious distress, heart regular rate and rhythm, lungs clear to auscultation equal bilaterally, abdomen soft bowel sounds present nondistended gravid and tender neurologic exam Ramiro Coma Scale 15 without focal motor deficit, skin is warm pale and dry Course Quality Measures none Orders Category Date Time Status EKG (ED ONLY) *Do not use* NOW Care 10/11/25 15:41 Completed EKG (ED Only) Stat Exams 10/11/25 15:41 Draft US OB >= 14 weeks Fetus Stat Exams 10/11/25 15:41 Completed ABO/RH Type Stat Lab 10/11/25 15:58 Completed B-Type Natriuretic Peptide Stat Lab 10/11/25 15:58 Completed Beta HCG,Quantitative Stat Lab 10/11/25 15:58 Completed CBC Stat Lab 10/11/25 15:58 Completed Comprehensive Metabolic Panel Stat Lab 10/11/25 15:58 Completed Magnesium Stat Lab 10/11/25 15:58 Completed Troponin I Stat Lab 10/11/25 15:58 Completed Urinalysis, C/S if Indicated Stat Lab 10/11/25 16:35 Completed Urine Culture Stat Lab 10/11/25 16:35 Received Vital Signs Vital signs: Vital Signs Temperature 98.9 F 10/11/25 15:32 Pulse Rate 100 10/11/25 15:32 Respiratory Rate 16 10/11/25 15:32 Blood Pressure 120/77 10/11/25 15:32 Pulse Oximetry (%) 99 10/11/25 15:32 Oxygen Delivery Method Room Air 10/11/25 15:32 Arrhythmia/Palpitations MDM Narrative MDM Narrative:: Scribe Attestation: 10/11/25 - Rosi, Isabel Gonzalez am scribing for and in the presence of Dr. Hdez. I interpreted all labs. There was no acute abnormality. Urine is not infected. Hemoglobin is 11. EKG shows normal sinus rhythm at a rate of 93 without ischemic change or ectopy. 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 It was sinus tachycardia. It was not supraventricular tachycardia. Patient has already had a traffic monitor specialist in place for 3 days. It is awaiting interpretation by cardiology. Patient is to follow-up with her urogynaecologist. Return to ER as needed or if condition worsens. Patient data External records reviewed:: [facility] previous records (Per chart review, patient was seen here on08/21/25 for .) Clinical information provided by:: patient Social determinants that could affect healthcare access:: none Patient has the following chronic illnesses:: none How is presenting disease/condition affected by chronic disease/condition?: no chronic disease Evaluation data The following diagnostics were reviewed and interpreted by me:: lab results, radiology exam(s) and EKG tracing(s) Lab and/or radiology exams considered but not ordered:: none Interpretation Summary: [facility] Report Signed Patient: JACLYN ROJAS Record#: [id number] Birthdate: 1995 Age/Sex: 30 / F Location: [facility] Attending Dr: Ordering Physician: Luke Story Date of Service: 10/11/25 Procedure(s): US OB >= 14 weeks Fetus Accession Number(s): [id number] cc: Luke Story; Marco Lee MD~ Examination: Complete OB ultrasound greater than 14 weeks Date and time of exam: October 11, 2025, 1612 hours INDICATIONS: Nausea cardiac palpitations today, 22-week by history Findings: Viable intrauterine single fetus with single amniotic sac presentation cephalic spine maternal left Cardiac motion 131 bpm Placenta posterior grade 2 Medical cord insertion 3 vessel seen Amniotic fluid index 15.5 cm Cervix 3.6 cm Ovaries obscured by bowel gas. Composite estimated gestational age based on BPD, head circumference, abdominal circumference, femur length is 23 weeks 2 days Estimated weight 596 g. Survey of intracranial anatomy, spinal anatomy, abdominal anatomy, four-chamber heart performed with no abnormalities identified. Impression: Five-point uterine gestation cephalic presentation. Dictated By: Marco Lee MD Signed By: <Electronically signed by Marco Lee MD in OV> 10/11/25 7980 Medications / Prescriptions Medications or Prescriptions considered but not ordered:: none Medication administrations:: none Consultations Consultation(s) initiated? (list below): No Diagnosis Differential diagnosis arrhythmia/palpitations: other (See MDM) Most likely diagnosis given after review of the tests above:: see clinical impression below Admission Indicated Admission indicated?: not indicated Admission Request Was there a request for admission?: No Disposition Plan Disposition Plan: Discharge Discharge Attestation Discharge Attestation: The patient and all family members were given an opportunity to ask questions and understood the discharge instructions. Discharge instructions specifically effects, indications for sooner follow up or return to the emergency department, and the expected course of current diagnosis. Patient condition: Stable Discharge Plan Plan Patient Disposition: HOME (Self Care) Prescriptions/Referrals Prescriptions/Med Rec: No Action PNV no.95-ferrous fumarate-FA [] 28 mg iron- 800 mcg tablet 1 tab PO QDAY ergocalciferol (vitamin D2) [Vitamin D2] 1,250 mcg (50,000 unit) capsule 1,250 mcg PO QWEEK ondansetron 4 mg tablet,disintegrating 4 mg PO Q6H PRN (Reason: nausea and vomiting) Qty: 14 0RF Referrals: No Primary/Family,Physician [Primary Care Provider] - In 1 week Problem List Clinical Impression: Sinus tachycardia Patient/Caregiver Discharge Instructions Education Materials: Understanding Tachycardia Additional Instructions: Follow-up with your urogynaecologist. Return to ER as needed or if condition worsens. Keep well-hydrated. Print Language: Iraqi Stand Alone Forms: Lizzy Cortes Info., Patient Portal Info Letter
[2025-10-11 20:22] VITALS: BP 112/75; PULSE 87; RESP 19; TEMP 36.7; O2SAT 100
== END 2025-10-11 20:41 | disposition home or self-care (01) ==
PROVIDERS: Nurse Practitioner Family; Emergency Provider Emergency Medicine
DX: O99.891 Other specified diseases and conditions complicating pregnancy (principal); R00.0 Tachycardia, unspecified; Z3A.23 23 weeks gestation of pregnancy
CPT/HCPCS: 36415; 76805; 80053; 81001; 83735; 83880; 84484; 84702; 85025; 86900; 86901; 87086; 93005; 99283